=== PATIENT | male | born 1955 | race Caucasian/White ===

== ENCOUNTER 2018-07-15 22:46 | Inpatient (IN) ==
--- NOTE | 2018-07-15 23:03 | Emergency Department Note ---
Disposition Clinical Impression: Hyponatremia Altered mental status Qualifiers: Altered mental status type: delirium Qualified Code(s): R41.0 - Disorientation, unspecified Disposition: Admitted As Inpatient Condition: Critical Referrals: NONE,PCP [Primary Care Provider] - Forms: ED Satisfaction Letter Time of Disposition: 00:48 Altered Mental Status HPI - General Chief Complaint: ED Altered Mental Status Stated Complaint: Altered Time Seen by Provider: 07/15/18 22:52 Source: patient, EMS Mode of arrival: EMS Limitations: altered mental status Nursing Notes Reviewed: Yes Vital Signs Reviewed: Yes - History of Present Illness HPI Narrative: 63-year-old male who lives at [facility] arrives to the emergency department alteration in mentation. Is unsure when the patient's last known well was noted. The patient apparently had a fall one day ago in the kitchen. He did not strike his head. Unknown LOC. The patient was noted to not get his blood glucose checked a few times today which is very unlike the patient. The patient was rambling about him being in the hospital and him being at home according to the people at [facility]. He was brought in for evaluation. Patient takes no anticoagulation. He is unsure of his other medications. The patient denies any active drug or alcohol use at this time. He is alert to person. He thinks that he is still in his room upon questioning him in the emergency department. He denies any chest pain, difficulty breathing, neck pain, headache or fevers, chills, unilateral leg swelling, paresthesias. He is appropriate and follows commands appropriately. Denies any other complaints at this time. - Related Data Allergies Allergy/AdvReac Type Severity Reaction Status Date / Time No Known Allergies Allergy Verified 07/15/18 22:54 All systems ED: reviewed and negative except as stated. Constitutional: Denies: fever, chills, weakness ENT ED: Denies: dysphagia Cardiovascular: Denies: chest pain Respiratory: Denies: dyspnea Gastrointestinal: Denies: abdominal pain Genitourinary: Denies: urgency, dysuria Musculoskeletal: Denies: back pain Integumentary: Denies: rash Neurological: Reports: confusion. Denies: headache, weakness, numbness, paresthesias, abnormal gait, vertigo Past Medical History - Past Medical History Attestation: Yes The following information was validated with the patient. Source: patient, old records reviewed Medical history: Reports: arthritis, diabetes, thyroid disease Surgical history: Reports: non-contributory Psychiatric history: Reports: anxiety, bipolar, depression, panic disorder - Social History Smoking Status: Current every day smoker Smokeless Tobacco Status: No Alcohol use: Reports: none Drug use: Reports: none Physical Exam - General Limitations: altered mental status General appearance: alert, in no apparent distress - Head Head exam: atraumatic, normocephalic, normal inspection - Eye Eye exam: Present: normal appearance, PERRL, EOMI - ENT ENT exam: normal exam, normal oropharynx, mucous membranes moist - Neck Neck exam: Present: normal inspection, full ROM, trachea midline - Chest Chest inspection: Present: normal inspection, symmetric chest wall rise - Respiratory Respiratory exam: Present: normal lung sounds bilaterally - Cardiovascular Cardiovascular exam: Present: regular rate, normal rhythm, normal heart sounds - Abdominal Exam Abdominal exam: Present: soft, Non-Tender. Absent: tenderness, distention, guarding, rebound, rigidity - Extremities Exam Extremities exam: Present: normal inspection, full ROM. Absent: tenderness, pedal edema - Neurological Exam Neurological exam: Present: alert, CN II-XII intact - Expanded Neurological Exam Patient oriented to: Present: person Speech: Present: fluid speech Cranial nerves: EOM function (II, III, IV, ): Normal, facial sensation (V): Normal, facial palsy (VII): Normal Cerebellar function: finger to nose: Normal Motor strength - LUE: 5/5 Motor strength - RUE: 5/5 Motor strength - LLE: 5/5 Motor strength - RLE: 5/5 Sensory exam upper extremity: light touch: Normal Sensory exam lower extremity: light touch: Normal Coma Scale Eye Opening: Spontaneous Coma Scale Motor Response: Obeys Commands Coma Scale Verbal Response: Oriented Coma Scale Total: 15 - Skin Skin exam: Present: warm, dry, intact, normal color Course - Consultations Consultation #1: Consultation to Dr. Red in nephrology for patient's hyponatremia. She recommended at this time a urine sodium and urine osmolality which was obtained already. She recommended a random cortisol levels well. Addition the patient was recommended to have fluid restriction with every 4 hours sodium checks until greater than 120 as well as 1 g sodium tablets 3 times a day at this time. She will see the patient in consultation recommended the patient go to the ICU at this time. She did not recommend hypertonic saline given the patient's sole concern for just alteration in mentation. Time: 00:28 Vital Signs Temperature 98.3 F 07/15/18 22:56 Pulse Rate 87 07/15/18 22:56 Respiratory Rate 16 07/15/18 22:56 Blood Pressure 159/62 07/15/18 22:56 O2 Sat by Pulse Oximetry 99 07/15/18 22:56 Temperature 98.3 F 07/15/18 22:56 Pulse Rate 86 07/16/18 00:39 Respiratory Rate 19 07/16/18 00:39 Blood Pressure 143/76 07/16/18 00:39 O2 Sat by Pulse Oximetry 97 07/16/18 00:39 Oxygen Delivery Oxygen Delivery Room Air Altered Mental Status - MDM Narrative Medical decision making narrative: Patient's workup in the emergency department demonstrates hyponatremia. This may be the etiology for the patient's alteration in mentation. His mentation has improved since he been here in the emergency department given the patient's hyponatremia as well as improving mental status and sees been in the emergency department I am concerned about a possible seizure. He is exhibited no further seizure activity here in the emergency department we started administering sodium tablets to the patient immediately. The patient had seizure precautions were placed by myself. The patient will be admitted to the hospital likely the ICU secondary to recommendation from nephrology. Lab work per nephrology was obtained. We will continue to monitor the patient's mental status. CT of the patient's head and cervical spine demonstrate no acute process. Lab work is otherwise unremarkable. Patient made aware and agrees to plan. No further recommendations at this time. Accepted by Dr. Chavez. - Medical Records Medical records reviewed: Yes I reviewed the patient's medical records. - Lab Data Lab results reviewed: Yes I reviewed the patient's lab results. Result diagrams: 07/15/18 23:04 07/15/18 23:04 Lab Results 07/15/18 07/15/18 07/15/18 Range/Units 23:04 23:04 23:04 WBC 10.1 (4.3-11.1) K/mcL RBC 4.26 (4.19-5.50) M/mcL Hgb 12.8 L (12.9-16.9) g/dL Hct 36.4 L (37.5-50.1) % MCV 85.4 (83.0-100.0) fL MCH 30.0 (28.0-33.3) pg MCHC 35.2 (31.6-35.5) g/dL RDW 13.4 (11.5-14.5) % Plt Count 218 (140-400) K/mcL MPV 7.7 L (9.4-12.4) fL Immature Gran % 0.5 (0-4) % Seg Neutrophils % 69.0 % Lymphocytes % 19.5 % Monocytes % 10.5 % Eosinophils % 0.2 % Basophils % 0.3 % Neutrophils # 7.0 (1.6-8.9) K/mcL Lymphocytes # 2.0 (0.6-4.6) K/mcL Monocytes # 1.1 (0.0-1.3) K/mcL Eosinophils # 0.0 (0.0-0.6) K/mcL Basophils # 0.0 (0.0-0.2) K/mcL Sodium 116 L* (136-145) mEq/L Potassium 3.9 (3.5-5.1) mEq/L Chloride 81 L (98-107) mEq/L Carbon Dioxide 25 (23-29) mEq/L BUN 11 (8-23) mg/dL Creatinine 0.96 (0.70-1.30) mg/dL Est GFR ( Amer) > 60 (> 60) Est GFR (Non-Af Amer) > 60 (> 60) BUN/Creatinine Ratio 11 (6-26) Glucose 244 H (70-105) mg/dL Calculated Osmolality 249 L (280-300) Calcium 9.4 (8.6-10.3) mg/dL Total Bilirubin 0.5 (0.3-1.0) mg/dL Direct Bilirubin 0.1 (0.0-0.2) mg/dL Indirect Bilirubin 0.4 (0.0-1.2) mg/dL AST 34 (13-39) Units/L ALT 14 (7-52) Units/L Alkaline Phosphatase 54 (34-104) Units/L Ammonia 23 (16-53) mcmol/L Serum Total Protein 6.9 (6.4-8.9) g/dL Albumin 4.2 (3.5-5.7) g/dL Globulin 2.7 (2.4-3.5) g/dL Albumin/Globulin Ratio 1.6 (1.1-2.2) TSH 7.381 H (0.340-5.600) mcIU/mL Urine Color (Yellow) Urine Clarity (Clear) Urine pH (5.0-8.0) pH Units Ur Specific Ida (1.010-1.025) Urine Protein (Neg-Trace) mg/dL Urine Glucose (UA) (Normal) mg/dL Urine Ketones (Negative) mg/dL Urine Blood (Negative) Urine Nitrite (Negative) Urine Bilirubin (Negative) Urine Urobilinogen (Normal) mg/dL Ur Leukocyte Esterase (Negative) Urine Microscopic RBC (0-3) per hpf Urine Microscopic WBC (0-3) per hpf Ur Squamous Epith Cells (None-Few) per lpf Urine Bacteria (None-Few) per hpf Hyaline Casts (None-Few) per lpf Ur Culture Indicated? (NO) Salicylates < 2.5 L (15.0-30.0) mg/dL Urine Opiates Screen (Mtqwpe=002) ng/mL Acetaminophen < 10 L (10-20) mcg/mL Ur Barbiturates Screen (Ftmdcg=140) ng/mL Ur Phencyclidine Scrn (Cutoff=25) ng/mL Ur Amphetamines Screen (Byhbtn=5599) ng/mL U Benzodiazepines Scrn (Euzuly=013) ng/mL Urine Cocaine Screen (Cutoff= 300) ng/mL U Marijuana (THC) Screen (Cutoff = 50) ng/mL Ur Drug Screen Interp 07/16/18 07/16/18 Range/Units 00:04 00:04 WBC (4.3-11.1) K/mcL RBC (4.19-5.50) M/mcL Hgb (12.9-16.9) g/dL Hct (37.5-50.1) % MCV (83.0-100.0) fL MCH (28.0-33.3) pg MCHC (31.6-35.5) g/dL RDW (11.5-14.5) % Plt Count (140-400) K/mcL MPV (9.4-12.4) fL Immature Gran % (0-4) % Seg Neutrophils % % Lymphocytes % % Monocytes % % Eosinophils % % Basophils % % Neutrophils # (1.6-8.9) K/mcL Lymphocytes # (0.6-4.6) K/mcL Monocytes # (0.0-1.3) K/mcL Eosinophils # (0.0-0.6) K/mcL Basophils # (0.0-0.2) K/mcL Sodium (136-145) mEq/L Potassium (3.5-5.1) mEq/L Chloride (98-107) mEq/L Carbon Dioxide (23-29) mEq/L BUN (8-23) mg/dL Creatinine (0.70-1.30) mg/dL Est GFR ( Amer) (> 60) Est GFR (Non-Af Amer) (> 60) BUN/Creatinine Ratio (6-26) Glucose (70-105) mg/dL Calculated Osmolality (280-300) Calcium (8.6-10.3) mg/dL Total Bilirubin (0.3-1.0) mg/dL Direct Bilirubin (0.0-0.2) mg/dL Indirect Bilirubin (0.0-1.2) mg/dL AST (13-39) Units/L ALT (7-52) Units/L Alkaline Phosphatase (34-104) Units/L Ammonia (16-53) mcmol/L Serum Total Protein (6.4-8.9) g/dL Albumin (3.5-5.7) g/dL Globulin (2.4-3.5) g/dL Albumin/Globulin Ratio (1.1-2.2) TSH (0.340-5.600) mcIU/mL Urine Color Yellow (Yellow) Urine Clarity Clear (Clear) Urine pH 6.5 (5.0-8.0) pH Units Ur Specific Ida 1.012 (1.010-1.025) Urine Protein Trace (Neg-Trace) mg/dL Urine Glucose (UA) 250 H (Normal) mg/dL Urine Ketones Negative (Negative) mg/dL Urine Blood Trace H (Negative) Urine Nitrite Negative (Negative) Urine Bilirubin Negative (Negative) Urine Urobilinogen Normal (Normal) mg/dL Ur Leukocyte Esterase Negative (Negative) Urine Microscopic RBC 0-3 (0-3) per hpf Urine Microscopic WBC 0-3 (0-3) per hpf Ur Squamous Epith Cells Many H (None-Few) per lpf Urine Bacteria None Seen (None-Few) per hpf Hyaline Casts None Seen (None-Few) per lpf Ur Culture Indicated? NO (NO) Salicylates (15.0-30.0) mg/dL Urine Opiates Screen Negative (Vqjpyy=968) ng/mL Acetaminophen (10-20) mcg/mL Ur Barbiturates Screen Negative (Gxxblk=691) ng/mL Ur Phencyclidine Scrn Negative (Cutoff=25) ng/mL Ur Amphetamines Screen Negative (Vhqcmy=2829) ng/mL U Benzodiazepines Scrn Negative (Kpjtts=362) ng/mL Urine Cocaine Screen Negative (Cutoff= 300) ng/mL U Marijuana (THC) Screen Negative (Cutoff = 50) ng/mL Ur Drug Screen Interp See Below - Radiology Data Radiology results reviewed: Yes I reviewed the patient's radiology results. Head CT 07/15/18 22:57 IMPRESSION: No acute intracranial abnormality. Ventricular enlargement is out of portion to sulcal prominence, likely central atrophy. An element of NPH is not excluded. D/ / Jose Larson MD / Jose Larson MD Interpreting Provider: Jose Larson MD Cervical Spine CT 07/15/18 22:58 IMPRESSION: No acute abnormality of the cervical spine. D/ / Rashad Lainez MD / Rashad Lainez MD Interpreting Provider: Rashad Lainez MD - EKG Data EKG attestation: Yes I reviewed and interpreted this EKG. EKG results narrative: Heart rate 85 BPM. Normal sinus rhythm with no ST elevation or ST depression. No acute changes. TPA Checklist - LKW: 3-4.5 hrs Add. Warnings/Precautions Patient/family understanding: The patient/family members have been counseled and understood the risk, benefit, and alternatives of treatment. Attestation Statement - Attestation Attestation: Resident Attestation: I examined this patient and my medical decision making was reviewed with the Resident Physician. I agree with the documented findings, disposition and treatment plan as described except to the extent set forth below. We independently had [id number] contact with the patient. Patient to the emergency department for altered mental status. Unknown last known well. Patient with fall proximally 1 day ago. Patient was a rambling and not making much sense and was sent to the emergency department. On my evaluation the patient knows his name and that he is in the hospital but does not know the year. Patient thinks that he is here for back pain. Patient states back pain is been going on for some time. Regular rate and rhythm, clear to auscultation bilaterally, abdomen soft nontender to palpation without guarding or rebound. No significant peripheral edema. Workup for altered mental status including CT scan of the head as well as blood work ordered.
[2018-07-15 23:21] LABS: Basophils % 0.3 %; Eosinophils % 0.2 %; Hematocrit 36.4 % (37.5-50.1); Hemoglobin 12.8 g/dL (12.9-16.9); Immature Granulocytes % 0.5 % (0-4); Lymphocytes % 19.5 %; Mean Corpuscular HGB Conc 35.2 g/dL (31.6-35.5); Mean Corpuscular Volume 85.4 fL (83.0-100.0); Mean Platelet Volume 7.7 fL (9.4-12.4); Monocytes # 1.1 K/mcL (0.0-1.3); Monocytes % 10.5 %; Platelet Count 218 K/mcL (140-400); Red Blood Count 4.26 M/mcL (4.19-5.50); Red Cell Distribution Width 13.4 % (11.5-14.5)
[2018-07-16 00:16] LABS: Acetaminophen < 10 mcg/mL (10-20); Alanine Aminotransferase 14 Units/L (7-52); Albumin 4.2 g/dL (3.5-5.7); Albumin/Globulin Ratio 1.6 (1.1-2.2); Alkaline Phosphatase 54 Units/L (34-104); Aspartate Amino Transferase 34 Units/L (13-39); BUN/Creatinine Ratio 11 (6-26); Bilirubin,Direct 0.1 mg/dL (0.0-0.2); Bilirubin,Indirect 0.4 mg/dL (0.0-1.2); Bilirubin,Total 0.5 mg/dL (0.3-1.0); Blood Urea Nitrogen 11 mg/dL (8-23); Calcium 9.4 mg/dL (8.6-10.3); Carbon Dioxide 25 mEq/L (23-29); Chloride 81 mEq/L (98-107); Globulin 2.7 g/dL (2.4-3.5); Glucose 244 mg/dL (70-105); Osmolality,Calculated 249 (280-300); Potassium 3.9 mEq/L (3.5-5.1); Salicylate < 2.5 mg/dL (15.0-30.0); Sodium 116 mEq/L (136-145); Total Protein 6.9 g/dL (6.4-8.9); eGFR For Non-African Americans > 60 (> 60)
[2018-07-16 00:17] LABS: Thyroid Stimulating Hormone 7.381 mcIU/mL (0.340-5.600)
[2018-07-16 00:19] LABS: Bilirubin,Urine Negative (Negative); Blood,Urine Trace (Negative); Clarity,Urine Clear (Clear); Color,Urine Yellow (Yellow); Glucose,Urine (UA) 250 mg/dL (Normal); Ketones,Urine Negative (Negative); Leukocyte Esterase,Urine Negative (Negative); Nitrite,Urine Negative (Negative); PH,Urine 6.5 pH Units (5.0-8.0); Protein,Urine Trace mg/dL (Neg-Trace); Specific Gravity,Urine 1.012 (1.010-1.025); Urobilinogen,Urine Normal (Normal)
[2018-07-16 00:21] LABS: Bacteria,Urine None Seen per hpf (None-Few); Hyaline Casts,Urine None Seen per lpf (None-Few); RBC,Urine 0-3 per hpf (0-3); Squamous Epithelial Cell,Urine Many per lpf (None-Few); WBC,Urine 0-3 per hpf (0-3)
[2018-07-16 00:28] LABS: Amphetamine Screen,Urine Negative ng/mL (Cutoff=1000); Barbiturate Screen,Urine Negative ng/mL (Cutoff=200); Benzodiazepines Screen,Urine Negative ng/mL (Cutoff=200); Cannabinoid Screen,Urine Negative ng/mL (Cutoff = 50); Cocaine Screen,Urine Negative ng/mL (Cutoff= 300); Opiate Screen,Urine Negative ng/mL (Cutoff=300); Phencyclidine Screen,Urine Negative ng/mL (Cutoff=25)
--- NOTE | 2018-07-16 01:27 | Internal Med History&Physical ---
<Beto Castro - Last Filed: 07/16/18 05:54> Date of Encounter: 07/16/18 Time of Encounter: 01:27 Internal Medicine - H&P: HPI Chief complaint: Altered mental status Admitted From: Home History of present illness: Mr. Blackwell is a 63 year old male permanent resident at the [facility] with a past medical history of hypertension, hyperlipidemia, CAD, diabetes mellitus type 2, hypothyroidism, tobacco dependence, and psychiatric disorder with chronic Perphenazine, Depakote, and Risperdal dependence who presented secondary to altered mental status for several weeks. He reportedly fell in the kitchen one day ago but denies striking his head. Unknown last known well or whether he had LOC. He is alert to person only and history of present illness was obtained from the medical record. In the ED, labs revealed sodium level 116, chloride level 81, urine sodium 28, urine osmolality 194, serum osmolality 249, elevated TSH 7.381, normal free T4, and normal random cortisol. ED physician spoke with cyber ops planner Dr. Red, who recommended starting sodium tablets. Repeat BMP 4 hours later showed sodium level 118. Past Med Surg Social Fam HX - Past Medical History Medical history: arthritis, diabetes, thyroid disease Psychiatric history: anxiety, bipolar, depression, panic disorder - Past Surgical History Surgical History: non-contributory, other Additional surgical history: Left shoulder surgery 10-19-76 - Social History Smoking Status: Current every day smoker Smokeless Tobacco Status: No Alcohol use: none Drug use: none Current living situation: Assisted ([facility]) - Family History Father Age: 82 Living Status: Still Living Hx Family Cardiac Disorders: Yes ([place], pacemaker) Hx Family Endocrine Disorder: Yes (Diabetes mellitus) Mother Age: 81 Living Status: Still Living Internal Medicine - H&P: Meds Acetaminophen [Tylenol] 650 mg PO Q8HR 07/16/18 [History] Aspirin [Lo-Dose Aspirin EC] 81 mg PO DAILY 07/16/18 [History] DiphenhydraMINE [Benadryl] 50 mg PO HS PRN 07/16/18 [History] Divalproex (24 HR) [Depakote ER (24 HR)] 1,000 mg PO HS 07/16/18 [History] Divalproex (24 HR) [Depakote ER (24 HR)] 500 mg PO QAM 07/16/18 [History] Insulin Glargine,Hum.rec.anlog [Lantus Solostar] 60 unit SQ QAM 07/16/18 [History] Levothyroxine [Synthroid] 100 mcg PO 0630 07/16/18 [History] RX: Benztropine Mesylate 2 mg PO BID 07/16/18 [History] RX: Glimepiride [Amaryl] 2 mg PO 0800 07/16/18 [History] RX: Perphenazine 4 mg PO QPM 07/16/18 [History] RX: Perphenazine [Trilafon] 8 mg PO BID 07/16/18 [History] Simvastatin [Zocor] 20 mg PO HS 07/16/18 [History] risperiDONE [Risperdal] 3 mg PO BID 07/16/18 [History] Allergy/AdvReac Type Severity Reaction Status Date / Time No Known Allergies Allergy Verified 07/15/18 22:54 ROS unobtainable: due to mental status All Systems PM: A 10-system review of systems was performed and is negative for pertinent findings except as documented above in the HPI. - Constitutional Vitals: Temp Pulse Resp BP Pulse Ox 98.3 F 86 19 143/76 97 07/15/18 22:56 07/16/18 00:39 07/16/18 00:39 07/16/18 00:39 07/16/18 00:39 General appearance: Present: A&O X 1, pleasant, no acute distress. Absent: answers questions appropriately Exam: awake - Head Head exam: Present: atraumatic, normocephalic - Eye Eye exam: Present: PERRL, conjuntiva pink, sclera anicteric Pupils: Present: PERRL - ENT ENT exam: Present: mucous membranes moist, normal oropharynx - Neck Neck exam general surgery: Present: supple, trachea midline. Absent: lymphadenopathy - Respiratory Respiratory exam: Present: CTAB. Absent: accessory muscle use, rales, rhonchi, wheezes - Cardiovascular Cardiovascular exam: Present: RRR, +S1, +S2. Absent: diastolic murmur, gallop, rubs, systolic murmur - GI/Abdominal GI/Abdominal exam: Present: normal bowel sounds, soft, no peritoneal signs. Absent: distended, tenderness - Extremities Exam Extremities exam: Present: warm, radial pulses palpable and symmetrical. Absent: calf tenderness, cyanotic, pedal edema - Back Exam Back exam: Absent: normal inspection (Decubitus lesions on left side back) - Neurological Exam Neurological exam: Present: alert (x1), CN II-XII intact, no focal deficits, strengths equal and symetr throughout. Absent: facial droop, speech deficit - Psychiatric Psychiatric exam: Present: flat affect, normal mood - Expanded Psychiatric Exam Focused psych exam: Present: perseverating. Absent: catatonic, euphoric, flight of ideas, mute, paranoid, pressured speech, psychomotor agitation, restlessness - Skin Skin exam: Present: dry, excoriation (Multiple quarter and dime -sized flat bullae over dependent portion of left back and buttock) Internal Med - H&P Results - Labs CBC & Chem 7: 07/16/18 02:49 07/16/18 02:49 Labs: Short CBC 07/15/18 Range/Units 23:04 WBC 10.1 (4.3-11.1) K/mcL Hgb 12.8 L (12.9-16.9) g/dL Hct 36.4 L (37.5-50.1) % Plt Count 218 (140-400) K/mcL Neutrophils # 7.0 (1.6-8.9) K/mcL BMP 07/15/18 23:04 Sodium 116 L* Potassium 3.9 Chloride 81 L Carbon Dioxide 25 BUN 11 Creatinine 0.96 Glucose 244 H Calcium 9.4 Liver Function 07/15/18 Range/Units 23:04 Total Bilirubin 0.5 (0.3-1.0) mg/dL Direct Bilirubin 0.1 (0.0-0.2) mg/dL AST 34 (13-39) Units/L ALT 14 (7-52) Units/L Alkaline Phosphatase 54 (34-104) Units/L Albumin 4.2 (3.5-5.7) g/dL Urine 07/16/18 Range/Units 00:04 Urine Color Yellow (Yellow) Urine Clarity Clear (Clear) Urine pH 6.5 (5.0-8.0) pH Units Ur Specific [place] 1.012 (1.010-1.025) Urine Protein Trace (Neg-Trace) mg/dL Urine Glucose (UA) 250 H (Normal) mg/dL - Pulse Oximetry Interpretation Digit-Finger O2 Sat by Pulse Oximetry: 98 (On ambient year) - EKG Data -: EKG Interpreted by Myself EKG shows normal: sinus rhythm ( Normal sinus rhythm, Heart rate 85, no ST elevation or depression) - Impressions ITS Impressions Head CT 07/15/18 22:57 IMPRESSION: No acute intracranial abnormality. Ventricular enlargement is out of portion to sulcal prominence, likely central atrophy. An element of NPH is not excluded. D/ / Jose Larson MD / Jose Larson MD Interpreting Provider: Jose Larson MD Cervical Spine CT 07/15/18 22:58 IMPRESSION: No acute abnormality of the cervical spine. D/ / Rashad Lainez MD / Rashad Lainez MD Interpreting Provider: Rashad Lainez MD - Assessment and plan (1) Hyponatremia Current Visit: Yes Status: Acute Assessment and plan: Euvolemic hyponatremia Sodium level 116 (corrected sodium for hyperglycemia is 118), urine sodium 28, urine osmolality 194, serum osmolality 249, elevated TSH 7.381, normal free T4, and normal random cortisol. Differential includes hypothyroidism vs. SIADH from chronic Clozapine and Risperdal dependence Patient has been acting strange for several weeks according to the [facility] staff. CT head revealed ventricular enlargement is out of portion to sulcal prominence, likely central atrophy. An element of NPH is not excluded. Continue salt tablets 3 times a day Monitor BMP every 4 hours until greater than 120 Nephrology consulted. (2) Hypochloremia Current Visit: Yes Status: Acute Assessment and plan: Chloride level 81 --> 84, continue salt tablets Monitor BMP every 4 hours Nephrology following (3) Psychiatric disorder Current Visit: Yes Status: Chronic Assessment and plan: Long-term residential [facility] patient with psychiatric disorder with chronic Perphenazine, Depakote, and Risperdal dependence presented secondary to altered mental status. Patient reports history of alcohol dependence, however [facility] staff did not confirm this was true. Alcohol level pending, banana bag ordered Patient pulled out his IV, he is A&O 1, Sitter ordered to bedside (4) Hypothyroidism Current Visit: Yes Status: Acute Assessment and plan: Elevated TSH level 7.381, free T4 level within normal limits Continue home dose Synthroid 100 g by mouth daily, patient will likely need outpatient dose adjust and close follow-up Qualifiers: Hypothyroidism type: unspecified Qualified Code(s): E03.9 - Hypothyroidism, unspecified (5) Hypertension Current Visit: Yes Status: Chronic Assessment and plan: Hydralazine ordered prn Qualifiers: Hypertension type: essential hypertension Qualified Code(s): I10 - Essential (primary) hypertension (6) Hyperlipidemia Current Visit: No Status: Chronic Assessment and plan: Continue statin. Qualifiers: Hyperlipidemia type: unspecified Qualified Code(s): E78.5 - Hyperlipidemia, unspecified (7) CAD (coronary artery disease) Current Visit: Yes Status: Acute Assessment and plan: Aspirin Cardiac diet Qualifiers: Coronary Disease-Associated Artery/Lesion type: unspecified vessel or lesion type [place] vs. transplanted heart: [place] heart Associated angina: angina presence unspecified Qualified Code(s): I25.10 - Atherosclerotic heart disease of [place] coronary artery without angina pectoris (8) DM type 2 (diabetes mellitus, type 2) Current Visit: Yes Status: Acute Assessment and plan: Hemoglobin A1c level pending Continue low dose SSI and Accu-Cheks before meals at bedtime Qualifiers: Diabetes mellitus skilled nursing insulin use: with skilled nursing use Diabetes mellitus complication status: without complication Qualified Code(s): E11.9 - Type 2 diabetes mellitus without complications; Z79.4 - [facility] (current) use of insulin (9) Arthritis of spine Current Visit: Yes Status: Chronic Assessment and plan: Continue Tylenol prn. (10) Tobacco dependence Current Visit: Yes Status: Chronic Assessment and plan: Tobacco cessation discussed (11) DVT prophylaxis Current Visit: Yes Status: Acute Assessment and plan: Heparin subcutaneous - Time Spent With Patient Total time spent is greater than 50% in coordination of care (as documented) at patient's floor/unit and/or counseling patient: <Logan Hahn - Last Filed: 07/16/18 07:19> Date of Encounter: 07/16/18 Internal Medicine - H&P: HPI History of present illness: Mr. Blackwell is a 63 year old male All Systems PM: A 10-system review of systems was performed and is negative for pertinent findings except as documented above in the HPI. - Constitutional Vitals: Temp Pulse Resp BP Pulse Ox 97.6 F 80 20 142/74 94 07/16/18 04:00 07/16/18 06:00 07/16/18 06:00 07/16/18 06:00 07/16/18 06:00 Internal Med - H&P Results - Labs CBC & Chem 7: 07/16/18 02:49 07/16/18 02:49 Labs: Short CBC 07/15/18 07/16/18 Range/Units 23:04 02:49 WBC 10.1 11.1 (4.3-11.1) K/mcL Hgb 12.8 L 13.1 (12.9-16.9) g/dL Hct 36.4 L 38.1 (37.5-50.1) % Plt Count 218 225 (140-400) K/mcL Neutrophils # 7.0 (1.6-8.9) K/mcL BMP 07/15/18 07/16/18 23:04 02:49 Sodium 116 L* 118 L* Potassium 3.9 3.8 Chloride 81 L 84 L Carbon Dioxide 25 27 BUN 11 10 Creatinine 0.96 0.96 Glucose 244 H 182 H Calcium 9.4 9.6 Liver Function 07/15/18 Range/Units 23:04 Total Bilirubin 0.5 (0.3-1.0) mg/dL Direct Bilirubin 0.1 (0.0-0.2) mg/dL AST 34 (13-39) Units/L ALT 14 (7-52) Units/L Alkaline Phosphatase 54 (34-104) Units/L Albumin 4.2 (3.5-5.7) g/dL Urine 07/16/18 Range/Units 00:04 Urine Color Yellow (Yellow) Urine Clarity Clear (Clear) Urine pH 6.5 (5.0-8.0) pH Units Ur Specific [place] 1.012 (1.010-1.025) Urine Protein Trace (Neg-Trace) mg/dL Urine Glucose (UA) 250 H (Normal) mg/dL - Impressions ITS Impressions Head CT 07/15/18 22:57 IMPRESSION: No acute intracranial abnormality. Ventricular enlargement is out of portion to sulcal prominence, likely central atrophy. An element of NPH is not excluded. D/ / Jose Larson MD / Jose Larson MD Interpreting Provider: Jose Larson MD Cervical Spine CT 07/15/18 22:58 IMPRESSION: No acute abnormality of the cervical spine. D/ / Rashad Lainez MD / Rashad Lainez MD Interpreting Provider: Rashad Lainez MD - Time Spent With Patient Total time spent is greater than 50% in coordination of care (as documented) at patient's floor/unit and/or counseling patient: - Attending Attestation Family history and physical examination of the patient and discussed his management with the resident. I reviewed the resident's note and agree with assessment and plan of care.
[2018-07-16] MEDS ORDERED: Ondansetron 4 MG/2 ML VIAL IVP PRN ×2 (01:28→09:55)
[2018-07-16] MEDS ORDERED: Naloxone 0.4 MG/ML INJ IVP PRN ×2 (01:28→09:55)
[2018-07-16] MEDS ORDERED: Acetaminophen 325 MG TABLET PO PRN (01:28)
[2018-07-16 03:05] LABS: Hematocrit 38.1 % (37.5-50.1); Hemoglobin 13.1 g/dL (12.9-16.9); Mean Corpuscular HGB Conc 34.4 g/dL (31.6-35.5); Mean Corpuscular Hemoglobin 29.5 pg (28.0-33.3); Mean Corpuscular Volume 85.8 fL (83.0-100.0); Mean Platelet Volume 7.4 fL (9.4-12.4); Platelet Count 225 K/mcL (140-400); Red Blood Count 4.44 M/mcL (4.19-5.50); Red Cell Distribution Width 13.4 % (11.5-14.5)
[2018-07-16 03:25] LABS: BUN/Creatinine Ratio 10 (6-26); Blood Urea Nitrogen 10 mg/dL (8-23); Calcium 9.6 mg/dL (8.6-10.3); Carbon Dioxide 27 mEq/L (23-29); Chloride 84 mEq/L (98-107); Glucose 182 mg/dL (70-105); Magnesium 1.6 mg/dL (1.6-2.6); Osmolality,Calculated 250 (280-300); Phosphorous 3.7 mg/dL (2.7-4.5); Potassium 3.8 mEq/L (3.5-5.1); Sodium 118 mEq/L (136-145); eGFR For Non-African Americans > 60 (> 60)
[2018-07-16] MEDS ORDERED: Thiamine (B-1) 100 MG, Folic Acid 1 MG, MVI, adult with vitamin K 10 ML in 0.9 % Sodi... IVPB SCH (04:39)
[2018-07-16] MEDS ORDERED: D5% in Water 1,000 ML IVC PRN ×2 (05:00→09:55)
[2018-07-16] MEDS ORDERED: Dextrose Gel 15 GM/37.5 ML TUBE PO PRN ×4 (05:00→09:55)
[2018-07-16] MEDS ORDERED: *HR* Dextrose 50 % in Water (Syg) 50 ML SYRINGE IVP PRN ×2 (05:00→09:55)
[2018-07-16] MEDS ORDERED: hydrALAZINE 10 MG TABLET PO PRN ×2 (05:05→09:55)
[2018-07-16] MEDS ORDERED: *HR* Heparin 5,000 UNIT/ML VIAL SQ SCH (06:00)
[2018-07-16] MEDS ORDERED: Levothyroxine 25 MCG TABLET PO SCH (06:30)
[2018-07-16] MEDS ORDERED: Insulin LISPRO 300 UNITS/3 ML VIAL SQ SCH ×2 (07:30→21:00)
[2018-07-16 07:52] LABS: BUN/Creatinine Ratio 12 (6-26); Blood Urea Nitrogen 10 mg/dL (8-23); Calcium 9.4 mg/dL (8.6-10.3); Carbon Dioxide 25 mEq/L (23-29); Chloride 87 mEq/L (98-107); Glucose 154 mg/dL (70-105); Osmolality,Calculated 252 (280-300); Potassium 4.2 mEq/L (3.5-5.1); Sodium 120 mEq/L (136-145); eGFR For Non-African Americans > 60 (> 60)
[2018-07-16 08:39] LABS: Estimated Average Glucose 174 mg/dl; Hemoglobin A1C 7.7 %
[2018-07-16] MEDS ORDERED: Pantoprazole 40 MG VIAL IVP SCH (09:00)
[2018-07-16] MEDS ORDERED: Aspirin 81 MG TAB.CHEW PO SCH (09:00)
--- NOTE | 2018-07-16 11:05 | Internal Med Progress Note ---
<Lindsey Sheridan - Last Filed: 07/16/18 11:02> Hospitalist Progress Note - Encounter Date of Encounter: 07/16/18 Time of Encounter: 11:02 - Subjective Interval History: Patient still with altered mental status, but answering some questions. At times makes rambling noise and does not answer, at times answers questions appr opriately. States he is "good" today. Denies pain. - Exam Vitals: Temp Pulse Resp BP Pulse Ox 97.8 F 89 20 138/68 92 07/16/18 07:00 07/16/18 10:00 07/16/18 10:00 07/16/18 10:00 07/16/18 10:00 Exam: General: alert, NAD HEENT: normocephalic, atraumatic, PEERLA EOMI, neck supple, trachea midline, external ears normal, MMM Cardiac: RRR, no murmurs Respiratory: CTAB Abdomen: soft, nontender, BS present Extremities: posterior tibial pulses 2/4 equal, no edema Neuro: A&Ox1 (name only) Psych: normal affect Skin: decubitus lesion left back side - Assessment and Plan (1) Altered mental status Current Visit: Yes Status: Acute Assessment and Plan: most likely due to hyponatremia slow repletion with salt tabs TID CMP Q4H diet changed from cardiac (low sodium, low cholesterol) to diabetic diet Na has increased from 116->120 in 8 hours, salt tabs currently on hold pending future BMPs transfer from ICU to telemetry (2) Hyponatremia Current Visit: Yes Status: Acute Assessment and Plan: plan as above (3) Hypochloremia Current Visit: Yes Status: Acute Assessment and Plan: plan as above (4) Hypothyroidism Current Visit: No Status: Chronic Assessment and Plan: TSH elevated 7.381 home medication of 100 ug levothyroxine questionable how patient is taking medication at [facility] care facility continue 100 ug levothyroxine discharge with instructions to take QAM on an empty stomach 1 hr before taking other morning medications or eating (5) Psychiatric disorder Current Visit: Yes Status: Chronic Assessment and Plan: continue home medications if mentation does not improve with normalization of sodium, may need psychiatry consult (6) Tobacco dependence Current Visit: Yes Status: Chronic Assessment and Plan: nicotine patch (7) CAD (coronary artery disease) Current Visit: No Status: Chronic Assessment and Plan: continue home medications (8) DM type 2 (diabetes mellitus, type 2) Current Visit: Yes Status: Acute Assessment and Plan: A1C 7.7 ADA diet SSI (9) Hypertension Current Visit: No Status: Chronic Assessment and Plan: continue home medications (10) Hyperlipidemia Current Visit: No Status: Chronic Assessment and Plan: continue home meds DVT Prophylaxis: heparin SQ - Time Spent with Patient Total time spent is greater than 50% in coordination of care (as documented) at patient's floor/unit and/or counseling patient: Internal Medicine: Result - Labs CBC & Chem 7: 07/16/18 02:49 07/16/18 07:03 Labs: Short CBC 07/15/18 07/16/18 Range/Units 23:04 02:49 WBC 10.1 11.1 (4.3-11.1) K/mcL Hgb 12.8 L 13.1 (12.9-16.9) g/dL Hct 36.4 L 38.1 (37.5-50.1) % Plt Count 218 225 (140-400) K/mcL Neutrophils # 7.0 (1.6-8.9) K/mcL BMP 07/15/18 07/16/18 07/16/18 23:04 02:49 07:03 Sodium 116 L* 118 L* 120 L* Potassium 3.9 3.8 4.2 Chloride 81 L 84 L 87 L Carbon Dioxide 25 27 25 BUN 11 10 10 Creatinine 0.96 0.96 0.85 Glucose 244 H 182 H 154 H Calcium 9.4 9.6 9.4 Liver Function 07/15/18 Range/Units 23:04 Total Bilirubin 0.5 (0.3-1.0) mg/dL Direct Bilirubin 0.1 (0.0-0.2) mg/dL AST 34 (13-39) Units/L ALT 14 (7-52) Units/L Alkaline Phosphatase 54 (34-104) Units/L Albumin 4.2 (3.5-5.7) g/dL Urine 07/16/18 Range/Units 00:04 Urine Color Yellow (Yellow) Urine Clarity Clear (Clear) Urine pH 6.5 (5.0-8.0) pH Units Ur Specific [place] 1.012 (1.010-1.025) Urine Protein Trace (Neg-Trace) mg/dL Urine Glucose (UA) 250 H (Normal) mg/dL - Impressions Impressions Head CT 07/15/18 22:57 IMPRESSION: No acute intracranial abnormality. Ventricular enlargement is out of portion to sulcal prominence, likely central atrophy. An element of NPH is not excluded. D/ / Jose Larson MD / Jose Larson MD Interpreting Provider: Jose Larson MD Cervical Spine CT 07/15/18 22:58 IMPRESSION: No acute abnormality of the cervical spine. D/ / Rashad Lainez MD / Rashad Lainez MD Interpreting Provider: Rashad Lainez MD Consult Discharge Plan - Plan Referrals: NONE,PCP [Primary Care Provider] - <Theodore Roy - Last Filed: 07/16/18 18:31> Hospitalist Progress Note - Encounter Date of Encounter: 07/16/18 - Exam Vitals: Temp Pulse Resp BP Pulse Ox 98.6 F 88 18 117/72 95 07/16/18 15:55 07/16/18 16:00 07/16/18 16:00 07/16/18 16:00 07/16/18 16:00 - Time Spent with Patient Total time spent is greater than 50% in coordination of care (as documented) at patient's floor/unit and/or counseling patient: Internal Medicine: Result - Labs CBC & Chem 7: 07/16/18 02:49 07/16/18 14:46 Labs: Short CBC 07/15/18 07/16/18 Range/Units 23:04 02:49 WBC 10.1 11.1 (4.3-11.1) K/mcL Hgb 12.8 L 13.1 (12.9-16.9) g/dL Hct 36.4 L 38.1 (37.5-50.1) % Plt Count 218 225 (140-400) K/mcL Neutrophils # 7.0 (1.6-8.9) K/mcL BMP 07/15/18 07/16/18 07/16/18 23:04 02:49 07:03 Sodium 116 L* 118 L* 120 L* Potassium 3.9 3.8 4.2 Chloride 81 L 84 L 87 L Carbon Dioxide 25 27 25 BUN 11 10 10 Creatinine 0.96 0.96 0.85 Glucose 244 H 182 H 154 H Calcium 9.4 9.6 9.4 07/16/18 07/16/18 11:38 14:46 Sodium 119 L* 119 L* Potassium 4.1 4.0 Chloride 87 L 87 L Carbon Dioxide 25 26 BUN 11 12 Creatinine 0.95 1.01 Glucose 198 H 143 H Calcium 9.1 9.3 Liver Function 07/15/18 Range/Units 23:04 Total Bilirubin 0.5 (0.3-1.0) mg/dL Direct Bilirubin 0.1 (0.0-0.2) mg/dL AST 34 (13-39) Units/L ALT 14 (7-52) Units/L Alkaline Phosphatase 54 (34-104) Units/L Albumin 4.2 (3.5-5.7) g/dL Urine 07/16/18 Range/Units 00:04 Urine Color Yellow (Yellow) Urine Clarity Clear (Clear) Urine pH 6.5 (5.0-8.0) pH Units Ur Specific [place] 1.012 (1.010-1.025) Urine Protein Trace (Neg-Trace) mg/dL Urine Glucose (UA) 250 H (Normal) mg/dL - Impressions Impressions Head CT 07/15/18 22:57 IMPRESSION: No acute intracranial abnormality. Ventricular enlargement is out of portion to sulcal prominence, likely central atrophy. An element of NPH is not excluded. D/ / Jose Larson MD / Jose Larson MD Interpreting Provider: Jose Larson MD Cervical Spine CT 07/15/18 22:58 IMPRESSION: No acute abnormality of the cervical spine. D/ / Rashad Lainez MD / Rashad Lainez MD Interpreting Provider: Rashad Lainez MD - Attending Attestation I examined this patient and my medical decision-making was reviewed with the Resident Physician on 07/16/18. I agree with the documented findings, disposition and treatment plan as described except to the extent set forth below. Pt admitted earlier today for hyponatremia. He has been receiving salt tablets. Exam alert Comfortable Mucus membranes dry Heart reg Lungs clear Agree with assessment and plan as above and in H&P <Lindsey Sheridan - Last Filed: 07/16/18 11:02> (1) Altered mental status Qualifiers: Altered mental status type: delirium Qualified Code(s): R41.0 - Disorientation, unspecified (4) Hypothyroidism Qualifiers: Hypothyroidism type: unspecified Qualified Code(s): E03.9 - Hypothyroidism, unspecified (7) CAD (coronary artery disease) Qualifiers: Coronary Disease-Associated Artery/Lesion type: unspecified vessel or lesion type [place] vs. transplanted heart: [place] heart Associated angina: angina presence unspecified Qualified Code(s): I25.10 - Atherosclerotic heart disease of [place] coronary artery without angina pectoris (8) DM type 2 (diabetes mellitus, type 2) Qualifiers: Diabetes mellitus skilled nursing insulin use: with sales service professional use Diabetes mellitus complication status: without complication Qualified Code(s): E11.9 - Type 2 diabetes mellitus without complications; Z79.4 - [facility] (current) use of insulin (9) Hypertension Qualifiers: Hypertension type: essential hypertension Qualified Code(s): I10 - Essential (primary) hypertension (10) Hyperlipidemia Qualifiers: Hyperlipidemia type: unspecified Qualified Code(s): E78.5 - Hyperlipidemia, unspecified
--- NOTE | 2018-07-16 11:48 | Nephrology Consult Note ---
Date of Encounter: 07/16/18 Time of Encounter: 11:45 Assessment and Plan (1) Hyponatremia Current Visit: Yes Status: Acute Patient with hyponatremia and altered mental status. His baseline mental status is unknown. His sodium is improving on current therapy. I recommend his sodium increase by no more than 8meq/liter/day. If overcorrection occurs he may need DDAVP to slow the rate of correction or to reverse the correction. Work-up is ordered. Patient does have hyponatremia which may be contributing. Will repeat TSH and defer management to the primary team. . (2) Altered mental status Current Visit: Yes Status: Acute Baseline unknown at this time. He is calm at the time of my evaluation. Qualifiers: Altered mental status type: delirium Qualified Code(s): R41.0 - Disorientation, unspecified (3) DM type 2 (diabetes mellitus, type 2) Current Visit: Yes Status: Acute Per the primary team. 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 Blackwell is a 63 yo man with a complicated history of psychiatric disorders who presents with altered mental status and a fall and was found to have hyponatremia. He reports that he feels well, but I'm unsure about the reliability of his history given his mental condition. Past Med Surg Social Fam HX - Past Medical History Medical history: arthritis, diabetes, thyroid disease Psychiatric history: anxiety, bipolar, depression, panic disorder - Past Surgical History Surgical History: non-contributory, other Additional surgical history: Left shoulder surgery 10-19-76 - Social History Smoking Status: Current every day smoker Smokeless Tobacco Status: No Alcohol use: none Drug use: none - Family History Mother Age: 81 Living Status: Still Living Father Age: 82 Living Status: Still Living Hx Family Cardiac Disorders: Yes (NC, pacemaker) Hx Family Endocrine Disorder: Yes (Diabetes mellitus) Medications and Allergies Acetaminophen [Tylenol] 650 mg PO Q8HR 07/16/18 [History] Aspirin [Lo-Dose Aspirin EC] 81 mg PO DAILY 07/16/18 [History] Benztropine Mesylate 2 mg PO BID 07/16/18 [History] DiphenhydraMINE [Benadryl] 50 mg PO HS PRN 07/16/18 [History] Divalproex (24 HR) [Depakote ER (24 HR)] 1,000 mg PO HS 07/16/18 [History] Divalproex (24 HR) [Depakote ER (24 HR)] 500 mg PO QAM 07/16/18 [History] Glimepiride [Amaryl] 2 mg PO 0800 07/16/18 [History] Insulin Glargine,Hum.rec.anlog [Lantus Solostar] 60 unit SQ QAM 07/16/18 [History] Levothyroxine [Synthroid] 100 mcg PO 0630 07/16/18 [History] Perphenazine 4 mg PO QPM 07/16/18 [History] Perphenazine [Trilafon] 8 mg PO BID 07/16/18 [History] Simvastatin [Zocor] 20 mg PO HS 07/16/18 [History] risperiDONE [Risperdal] 3 mg PO BID 07/16/18 [History] Allergy/AdvReac Type Severity Reaction Status Date / Time No Known Allergies Allergy Verified 07/15/18 22:54 Review of Systems ROS unobtainable: due to mental status Exam - Vital Signs Vital signs: Initial Vital Signs Temp Pulse Resp BP Pulse Ox 98.3 F 87 16 159/62 99 07/15/18 22:56 07/15/18 22:56 07/15/18 22:56 07/15/18 22:56 07/15/18 22:56 Vital Signs - Last 8 Hours Temp Pulse Resp BP Pulse Ox 07/16/18 10:00 89 20 138/68 92 07/16/18 09:00 87 18 134/82 97 07/16/18 08:00 81 20 139/85 99 07/16/18 07:00 97.8 F 81 20 148/68 99 07/16/18 06:00 80 20 142/74 94 07/16/18 05:00 81 23 164/74 95 07/16/18 04:41 78 07/16/18 04:00 97.6 F 79 20 164/98 98 Intake and Output 07/15/18 07/16/18 07/16/18 23:59 07:59 15:59 Intake Total 650 / 650 Output Total 600 / 600 Balance 650 / 650 -600 / -600 Intake: Oral 650 / 650 Output: Urine 600 / 600 Other: # Voids 1 Weight 94.801 kg 90.5 kg Blood Glucose* 213 146 Patient Weight 07/16/18 23:59 Weight 90.5 kg - General Appearance General appearance: well-developed, well-nourished EENT: ATNC Neck: supple Respiratory: course breath sounds Cardiology: no edema, regular rate Gastrointestinal: no tenderness Integumentary: warm and dry Neurologic: confused Musculoskeletal: no cyanosis Psychiatric: mood/affect appropriate Results - Lab Results 07/16/18 02:49 07/16/18 07:03 Most recent lab results Calcium 9.4 mg/dL (8.6-10.3) 07/16/18 07:03 Phosphorus 3.7 mg/dL (2.7-4.5) 07/16/18 02:49 Magnesium 1.6 mg/dL (1.6-2.6) 07/16/18 02:49 Urine Sodium 20.2 mEq/L 07/16/18 01:45 Consult Discharge Plan - Plan Referrals: NONE,PCP [Primary Care Provider] -
[2018-07-16] MEDS: Acetaminophen 325 MG TABLET PO PRN (12:06)
[2018-07-16] MEDS: Nicotine 21 MG PATCH.TD24 TD SCH (12:10)
[2018-07-16] MEDS: Insulin LISPRO 300 UNITS/3 ML VIAL SQ SCH ×3 (12:11→20:40)
[2018-07-16 12:16] LABS: BUN/Creatinine Ratio 12 (6-26); Blood Urea Nitrogen 11 mg/dL (8-23); Calcium 9.1 mg/dL (8.6-10.3); Carbon Dioxide 25 mEq/L (23-29); Chloride 87 mEq/L (98-107); Glucose 198 mg/dL (70-105); Osmolality,Calculated 253 (280-300); Potassium 4.1 mEq/L (3.5-5.1); Sodium 119 mEq/L (136-145); eGFR For Non-African Americans > 60 (> 60)
[2018-07-16] MEDS: *HR* Heparin 5,000 UNIT/ML VIAL SQ SCH ×2 (15:09→20:40)
[2018-07-16 15:41] LABS: BUN/Creatinine Ratio 12 (6-26); Blood Urea Nitrogen 12 mg/dL (8-23); Calcium 9.3 mg/dL (8.6-10.3); Carbon Dioxide 26 mEq/L (23-29); Chloride 87 mEq/L (98-107); Glucose 143 mg/dL (70-105); Osmolality,Calculated 250 (280-300); Sodium 119 mEq/L (136-145); eGFR For Non-African Americans > 60 (> 60)
[2018-07-16] MEDS: Thiamine (B-1) 100 MG, Folic Acid 1 MG, MVI, adult with vitamin K 10 ML in 0.9 % Sodi... IVPB SCH (16:09)
[2018-07-16 19:25] LABS: BUN/Creatinine Ratio 14 (6-26); Blood Urea Nitrogen 14 mg/dL (8-23); Calcium 8.9 mg/dL (8.6-10.3); Carbon Dioxide 24 mEq/L (23-29); Chloride 89 mEq/L (98-107); Glucose 211 mg/dL (70-105); Osmolality,Calculated 257 (280-300); Sodium 120 mEq/L (136-145); eGFR For Non-African Americans > 60 (> 60)
[2018-07-16 23:49] LABS: BUN/Creatinine Ratio 13 (6-26); Blood Urea Nitrogen 14 mg/dL (8-23); Calcium 8.9 mg/dL (8.6-10.3); Carbon Dioxide 23 mEq/L (23-29); Chloride 91 mEq/L (98-107); Glucose 178 mg/dL (70-105); Osmolality,Calculated 259 (280-300); Potassium 3.9 mEq/L (3.5-5.1); Sodium 122 mEq/L (136-145); eGFR For Non-African Americans > 60 (> 60)
[2018-07-17 05:37] LABS: BUN/Creatinine Ratio 11 (6-26); Blood Urea Nitrogen 12 mg/dL (8-23); Calcium 9.3 mg/dL (8.6-10.3); Carbon Dioxide 26 mEq/L (23-29); Chloride 91 mEq/L (98-107); Glucose 133 mg/dL (70-105); Osmolality,Calculated 260 (280-300); Potassium 4.1 mEq/L (3.5-5.1); Sodium 124 mEq/L (136-145); eGFR For Non-African Americans > 60 (> 60)
[2018-07-17 05:53] LABS: Thyroid Stimulating Hormone 6.065 mcIU/mL (0.340-5.600)
[2018-07-17] MEDS: *HR* Heparin 5,000 UNIT/ML VIAL SQ SCH ×3 (05:56→19:49)
[2018-07-17 06:03] LABS: Triiodothyronine (T3) Total 0.65 ng/mL (0.87-1.78)
[2018-07-17] MEDS: Insulin LISPRO 300 UNITS/3 ML VIAL SQ SCH ×4 (07:26→19:52)
[2018-07-17 08:44] LABS: BUN/Creatinine Ratio 14 (6-26); Blood Urea Nitrogen 13 mg/dL (8-23); Calcium 9.2 mg/dL (8.6-10.3); Carbon Dioxide 26 mEq/L (23-29); Chloride 93 mEq/L (98-107); Glucose 132 mg/dL (70-105); Osmolality,Calculated 262 (280-300); Potassium 4.1 mEq/L (3.5-5.1); Sodium 125 mEq/L (136-145); eGFR For Non-African Americans > 60 (> 60)
[2018-07-17] MEDS: Aspirin 81 MG TAB.CHEW PO SCH (09:21)
[2018-07-17] MEDS: Pantoprazole 40 MG VIAL IVP SCH (09:21)
[2018-07-17] MEDS: Nicotine 21 MG PATCH.TD24 TD SCH (09:21)
--- NOTE | 2018-07-17 10:33 | Internal Med Progress Note ---
<Zion Watson - Last Filed: 07/17/18 15:14> Hospitalist Progress Note - Encounter Date of Encounter: 07/17/18 Time of Encounter: 10:29 - Subjective Interval History: Patient states he feels well today, just tired. I informed him that his sodium is improving, and that for the time being we would like to monitor his sodium on PO intake, and adjust treatment accordingly. He agreed with that plan of care. - Exam Vitals: Temp Pulse Resp BP Pulse Ox 98.5 F 67 18 112/58 95 07/17/18 07:00 07/17/18 08:00 07/17/18 08:00 07/17/18 08:00 07/17/18 08:00 Exam: General: alert, NAD HEENT: normocephalic, atraumatic, PEERLA EOMI, neck supple, trachea midline, external ears normal, MMM Cardiac: RRR, no murmurs Respiratory: CTAB Abdomen: soft, nontender, BS present Extremities: moves all 4 extremities, no focal deficits noted, no edema Neuro: A&Ox3 Psych: normal affect Skin: decubitus lesion left back side - Assessment and Plan (1) Hyponatremia Current Visit: Yes Status: Acute Assessment and Plan: Patient had been acting strange for several weeks according to the [facility] clinic staff. On presentation sodium level 116, urine sodium 28, urine osmolality 194, serum osmolality 249, elevated TSH 7.381, normal free T4, and normal random cortisol. Euvolemic hyponatremia, differential includes hypothyroidism vs. SIADH from chronic Clozapine and Risperdal dependence CT head revealed ventricular enlargement is out of portion to sulcal prominence, likely central atrophy. An element of NPH is not excluded. Patient was started on po sodium chloride tabs TID, Q4HR BMP, monitoring for sodium not to increase greater than 8 meq over 24 hrs Sodium today 125 this AM, 123 this afternoon, continuing salt tabs BID and s tarted 1.5L fluid restriction Patient A&OX3, will continue serial sodiums and monitoring, adjusting salt intake as necessary Nephrology following, appreciate recommendations (2) Hypertension Current Visit: No Status: Chronic Assessment and Plan: Patient with history of HTN but no home meds PRN Hydralazine ordered, BP stable (3) Hyperlipidemia Current Visit: No Status: Chronic Assessment and Plan: Continue home statin (4) CAD (coronary artery disease) Current Visit: No Status: Chronic Assessment and Plan: Continue home aspirin and cardiac diet No signs of ACS here (5) DM type 2 (diabetes mellitus, type 2) Current Visit: Yes Status: Acute Assessment and Plan: Chronic diabetic, on home insulin, A1c 7.7 ACHS accuchecks and low dose SSI (6) Hypothyroidism Current Visit: No Status: Chronic Assessment and Plan: Elevated TSH level 7.381, elevated T3, free T4 level within normal limits Continue home dose Synthroid 100 g by mouth daily, patient will likely need outpatient dose adjust and close follow-up (7) Tobacco dependence Current Visit: No Status: Chronic (8) Psychiatric disorder Current Visit: Yes Status: Chronic Assessment and Plan: Long-term residential [facility] clinic patient with psychiatric disorder Perphenazine, Depakote, and Risperdal dependence Presented secondary to altered mental status. Medications were considered as cause of Hyponatremia Less likely, home meds restarted Patient stable, A&OX3, will continue to monitor (9) Hypochloremia Current Visit: Yes Status: Acute Assessment and Plan: Chloride level 81 on presentation, 93 today Sodium chloride tablets BID Monitoring BMP every 4 hours Nephrology following (10) DVT prophylaxis Current Visit: Yes Status: Acute Assessment and Plan: subq heparin (11) Arthritis of spine Current Visit: Yes Status: Chronic Assessment and Plan: Tylenol PRN - Time Spent with Patient Total time spent is greater than 50% in coordination of care (as documented) at patient's floor/unit and/or counseling patient: Internal Medicine: Result - Labs CBC & Chem 7: 07/16/18 02:49 07/17/18 13:19 Labs: BMP 07/16/18 07/16/18 07/16/18 11:38 14:46 18:44 Sodium 119 L* 119 L* 120 L* Potassium 4.1 4.0 4.0 Chloride 87 L 87 L 89 L Carbon Dioxide 25 26 24 BUN 11 12 14 Creatinine 0.95 1.01 1.00 Glucose 198 H 143 H 211 H Calcium 9.1 9.3 8.9 07/16/18 07/17/18 07/17/18 22:50 05:08 08:12 Sodium 122 L 124 L 125 L Potassium 3.9 4.1 4.1 Chloride 91 L 91 L 93 L Carbon Dioxide 23 26 26 BUN 14 12 13 Creatinine 1.06 1.10 0.95 Glucose 178 H 133 H 132 H Calcium 8.9 9.3 9.2 - Impressions Impressions Head CT 07/17/18 00:00 IMPRESSION: No acute intracranial abnormality. Ventricular enlargement is out of proportion to sulcal prominence and ventricles have increased in size from 06/18/2013. Findings may represent central atrophy. An element of NPH is not excluded. D/ / Jose Larson MD / Jose Larson MD Interpreting Provider: Jose Larson MD Consult Discharge Plan - Plan Referrals: NONE,PCP [Primary Care Provider] - <Theodore Roy - Last Filed: 07/17/18 18:13> Hospitalist Progress Note - Encounter Date of Encounter: 07/17/18 - Exam Vitals: Temp Pulse Resp BP Pulse Ox 98.2 F 74 20 153/72 97 07/17/18 11:00 07/17/18 16:00 07/17/18 16:00 07/17/18 16:00 07/17/18 16:00 - Assessment and Plan (1) Hyponatremia Current Visit: Yes Status: Acute (2) Hypertension Current Visit: No Status: Chronic (3) Hyperlipidemia Current Visit: No Status: Chronic (4) CAD (coronary artery disease) Current Visit: No Status: Chronic (5) DM type 2 (diabetes mellitus, type 2) Current Visit: Yes Status: Acute (6) Hypothyroidism Current Visit: No Status: Chronic (7) Tobacco dependence Current Visit: No Status: Chronic (8) Psychiatric disorder Current Visit: Yes Status: Chronic (9) Hypochloremia Current Visit: Yes Status: Acute (10) DVT prophylaxis Current Visit: Yes Status: Acute (11) Arthritis of spine Current Visit: Yes Status: Chronic (12) Tobacco abuse Current Visit: Yes Status: Chronic - Time Spent with Patient Total time spent is greater than 50% in coordination of care (as documented) at patient's floor/unit and/or counseling patient: Internal Medicine: Result - Labs CBC & Chem 7: 07/16/18 02:49 07/17/18 15:26 Labs: BMP 07/16/18 07/16/1819 18:44 22:50 05:08 Sodium 120 L* 122 L 124 L Potassium 4.0 3.9 4.1 Chloride 89 L 91 L 91 L Carbon Dioxide 24 23 26 BUN 14 14 12 Creatinine 1.00 1.06 1.10 Glucose 211 H 178 H 133 H Calcium 8.9 8.9 9.3 07/17/18 07/17/18 07/17/18 08:12 13:19 15:26 Sodium 125 L 123 L 125 L Potassium 4.1 4.1 4.3 Chloride 93 L 92 L 93 L Carbon Dioxide 26 24 25 BUN 13 14 15 Creatinine 0.95 1.05 0.99 Glucose 132 H 210 H 184 H Calcium 9.2 9.2 9.3 - Impressions Impressions Head CT 07/17/18 00:00 IMPRESSION: No acute intracranial abnormality. Ventricular enlargement is out of proportion to sulcal prominence and ventricles have increased in size from 06/18/2013. Findings may represent central atrophy. An element of NPH is not excluded. D/ / Jose Larson MD / Jose Larson MD Interpreting Provider: Jose Larson MD - Attending Attestation I examined this patient and my medical decision-making was reviewed with the Resident Physician on 07/17/18. I agree with the documented findings, disposition and treatment plan as described except to the extent set forth below. Mr Blackwell is currently admitted for hyponatremia and encephalopathy. He remains moderate to high risk due to potential for worsening clinical status. Mr Blackwell is more alert and oriented today. No fever or chills. Sodium increasing. No abd pain or GI symptoms. No CP or SOB. Exam Alert Oriented at this time. Mucus membranes dry Heart reg and not tachy No wheeze abd soft I/P 1. Hyponatremia - salt tablets and fluid restrict 3. HTN 4. CAD Further diagnoses and plan as above. <WalterZion Che - Last Filed: 07/17/18 15:14> (2) Hypertension Qualifiers: Hypertension type: essential hypertension Qualified Code(s): I10 - Essential (primary) hypertension (3) Hyperlipidemia Qualifiers: Hyperlipidemia type: unspecified Qualified Code(s): E78.5 - Hyperlipidemia, unspecified (4) CAD (coronary artery disease) Qualifiers: Coronary Disease-Associated Artery/Lesion type: unspecified vessel or lesion type [place] vs. 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
[2018-07-17 13:52] LABS: BUN/Creatinine Ratio 13 (6-26); Blood Urea Nitrogen 14 mg/dL (8-23); Calcium 9.2 mg/dL (8.6-10.3); Carbon Dioxide 24 mEq/L (23-29); Chloride 92 mEq/L (98-107); Glucose 210 mg/dL (70-105); Osmolality,Calculated 263 (280-300); Potassium 4.1 mEq/L (3.5-5.1); Sodium 123 mEq/L (136-145); eGFR For Non-African Americans > 60 (> 60)
[2018-07-17 15:55] LABS: BUN/Creatinine Ratio 15 (6-26); Blood Urea Nitrogen 15 mg/dL (8-23); Calcium 9.3 mg/dL (8.6-10.3); Carbon Dioxide 25 mEq/L (23-29); Chloride 93 mEq/L (98-107); Glucose 184 mg/dL (70-105); Osmolality,Calculated 266 (280-300); Potassium 4.3 mEq/L (3.5-5.1); Sodium 125 mEq/L (136-145); eGFR For Non-African Americans > 60 (> 60)
--- NOTE | 2018-07-17 16:05 | Electrocardiograph Report ---
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
[2018-07-17] MEDS: Thiamine (B-1) 100 MG, Folic Acid 1 MG, MVI, adult with vitamin K 10 ML in 0.9 % Sodi... IVPB SCH (17:26)
[2018-07-17] MEDS ORDERED: Perphenazine 2 MG TABLET PO SCH (18:00)
[2018-07-17 19:28] LABS: BUN/Creatinine Ratio 15 (6-26); Blood Urea Nitrogen 15 mg/dL (8-23); Calcium 9.3 mg/dL (8.6-10.3); Carbon Dioxide 24 mEq/L (23-29); Chloride 93 mEq/L (98-107); Glucose 189 mg/dL (70-105); Osmolality,Calculated 268 (280-300); Potassium 4.3 mEq/L (3.5-5.1); Sodium 126 mEq/L (136-145); eGFR For Non-African Americans > 60 (> 60)
[2018-07-17] MEDS: RisperiDAL 3 MG TABLET PO SCH (19:46)
[2018-07-17] MEDS: Perphenazine 8 MG TABLET PO SCH (19:49)
[2018-07-17] MEDS ORDERED: Divalproex (24 HR) 500 MG TABLET PO SCH (21:00)
--- NOTE | 2018-07-17 21:13 | Nephrology Progress Note ---
Date of Encounter: 07/17/18 Time of Encounter: 10:05 - Assessment and Plan (1) Hyponatremia Status: Acute Patient with multifactorial hyponatremia with improvement in his sodium and mental status level. Continue current care. 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 He has no new complaint. Objective - Vital Signs Vital signs: Vital Signs Temp Pulse Resp BP Pulse Ox 07/17/18 20:19 98.3 F 07/17/18 19:20 81 16 140/59 97 07/17/18 16:00 74 20 153/72 97 07/17/18 15:46 75 07/17/18 14:00 75 18 131/67 98 07/17/18 12:00 18 153/75 95 07/17/18 11:23 78 07/17/18 11:00 98.2 F 75 20 144/65 97 07/17/18 08:00 67 18 112/58 95 07/17/18 07:38 67 07/17/18 07:00 98.5 F 07/17/18 06:23 79 16 121/64 97 07/17/18 05:02 69 14 98/56 95 07/17/18 04:00 73 12 119/56 95 07/17/18 03:40 73 14 114/66 96 07/17/18 02:00 71 14 131/66 95 07/17/18 01:00 75 14 135/66 94 07/17/18 00:00 80 12 158/68 93 07/16/18 23:40 84 12 148/73 95 07/16/18 22:00 77 12 141/75 94 07/16/18 21:30 79 14 123/74 94 07/16/18 21:29 98.7 F Intake and Output 07/17/18 07/17/18 07/17/18 07:59 15:59 23:59 Intake Total 0 / 0 550 / 550 Output Total 400 / 400 Balance 0 / 0 550 / 550 -400 / -400 Intake: Oral 0 / 0 550 / 550 Output: Urine 400 / 400 Other: Meal Breakfast Dinner Percent of Meal Consumed 100% 100% Stool Size Smear Copious Stool Consistency formed Stool Color Brown Brown # Voids 1 1 2 # Bowel Movements 1 0 Blood Glucose* 126 218 167 - General Appearance General appearance: Present: well-developed, well-nourished EENT: Present: ATNC Neck: Present: supple Cardiology: Present: regular rate - Lab 07/18/18 04:23 07/21/18 05:17 Most recent lab results Calcium 9.3 mg/dL (8.6-10.3) 07/17/18 18:59 Phosphorus 3.7 mg/dL (2.7-4.5) 07/16/18 02:49 Magnesium 1.6 mg/dL (1.6-2.6) 07/16/18 02:49 Urine Sodium 20.2 mEq/L 07/16/18 01:45 Consult Discharge Plan - Plan Instructions: Sodium Chloride (By mouth), Osteoarthritis (DC), Hypothyroidism (DC), Diabetes Mellitus Type 2 in Adults (DC), Chronic Hypertension (DC), Cigarette Smoking and Your Health, 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
[2018-07-17] MEDS: Acetaminophen 325 MG TABLET PO PRN (22:17)
[2018-07-18 00:55] LABS: BUN/Creatinine Ratio 14 (6-26); Blood Urea Nitrogen 14 mg/dL (8-23); Carbon Dioxide 25 mEq/L (23-29); Chloride 94 mEq/L (98-107); Glucose 239 mg/dL (70-105); Osmolality,Calculated 270 (280-300); Sodium 126 mEq/L (136-145); eGFR For Non-African Americans > 60 (> 60)
[2018-07-18 04:35] LABS: Basophils # 0.1 K/mcL (0.0-0.2); Basophils % 0.5 %; Eosinophils # 0.1 K/mcL (0.0-0.6); Eosinophils % 0.7 %; Hematocrit 33.8 % (37.5-50.1); Hemoglobin 11.6 g/dL (12.9-16.9); Immature Granulocytes % 0.4 % (0-4); Lymphocytes # 2.3 K/mcL (0.6-4.6); Mean Corpuscular HGB Conc 34.3 g/dL (31.6-35.5); Mean Corpuscular Hemoglobin 29.9 pg (28.0-33.3); Mean Corpuscular Volume 87.1 fL (83.0-100.0); Mean Platelet Volume 7.7 fL (9.4-12.4); Monocytes % 9.4 %; Neutrophils # 6.9 K/mcL (1.6-8.9); Platelet Count 189 K/mcL (140-400); Red Blood Count 3.88 M/mcL (4.19-5.50); Red Cell Distribution Width 14.2 % (11.5-14.5)
[2018-07-18 04:55] LABS: BUN/Creatinine Ratio 14 (6-26); Blood Urea Nitrogen 13 mg/dL (8-23); Carbon Dioxide 24 mEq/L (23-29); Chloride 95 mEq/L (98-107); Glucose 234 mg/dL (70-105); Osmolality,Calculated 274 (280-300); Potassium 4.4 mEq/L (3.5-5.1); Sodium 128 mEq/L (136-145); eGFR For Non-African Americans > 60 (> 60)
[2018-07-18] MEDS: *HR* Heparin 5,000 UNIT/ML VIAL SQ SCH ×3 (05:51→22:16)
[2018-07-18] MEDS: Acetaminophen 325 MG TABLET PO PRN ×4 (06:39→22:25)
[2018-07-18] MEDS: Aspirin 81 MG TAB.CHEW PO SCH (08:10)
[2018-07-18] MEDS: RisperiDAL 3 MG TABLET PO SCH ×2 (08:11→22:15)
[2018-07-18] MEDS: Perphenazine 8 MG TABLET PO SCH ×2 (08:11→22:57)
[2018-07-18] MEDS: Pantoprazole 40 MG VIAL IVP SCH (08:12)
[2018-07-18] MEDS: Nicotine 21 MG PATCH.TD24 TD SCH (08:12)
[2018-07-18] MEDS: Insulin LISPRO 300 UNITS/3 ML VIAL SQ SCH ×3 (08:13→16:23)
--- NOTE | 2018-07-18 08:47 | Nephrology Progress Note ---
Date of Encounter: 07/20/18 Time of Encounter: 08:47 - Assessment and Plan (1) Hyponatremia Current Visit: Yes Status: Acute Patient with multifactorial hyponatremia with improvement in his sodium and mental status level. Will sign off. Call if questions or concerns . 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 He feels better. Objective - Vital Signs Vital signs: Vital Signs Temp Pulse Resp BP Pulse Ox 07/18/18 08:41 98.6 F 07/18/18 08:00 92 20 135/75 96 07/18/18 03:00 98.5 F 92 16 148/67 98 07/17/18 23:00 98.5 F 92 16 156/79 98 07/17/18 20:19 98.3 F 07/17/18 19:20 81 16 140/59 97 07/17/18 16:00 74 20 153/72 97 07/17/18 15:46 75 07/17/18 14:00 75 18 131/67 98 07/17/18 12:00 18 153/75 95 07/17/18 11:23 78 07/17/18 11:00 98.2 F 75 20 144/65 97 Intake and Output 07/17/18 07/18/18 07/18/18 23:59 07:59 15:59 Intake Total 250 / 250 Output Total 400 / 400 1000 / 1000 Balance -400 / -400 -750 / -750 Intake: Oral 250 / 250 Output: Urine 400 / 400 1000 / 1000 Other: Meal Dinner Percent of Meal Consumed 100% Stool Size Copious Stool Consistency formed Stool Color Brown # Voids 2 # Bowel Movements 0 Weight 91.6 kg Blood Glucose* 167 188 Patient Weight 07/18/18 23:59 Weight 91.6 kg - General Appearance General appearance: Present: well-developed, well-nourished EENT: Present: ATNC Cardiology: Present: regular rate - Lab 07/18/18 04:23 07/20/18 05:54 Most recent lab results Calcium 9.0 mg/dL (8.6-10.3) 07/18/18 04:23 Phosphorus 3.7 mg/dL (2.7-4.5) 07/16/18 02:49 Magnesium 1.6 mg/dL (1.6-2.6) 07/16/18 02:49 Urine Sodium 20.2 mEq/L 07/16/18 01:45 Consult Discharge Plan - Plan Instructions: Sodium Chloride (By mouth), Osteoarthritis (DC), Hypothyroidism (DC), Diabetes Mellitus Type 2 in Adults (DC), Chronic Hypertension (DC), Cigarette Smoking and Your Health, 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
[2018-07-18] MEDS ORDERED: Divalproex (24 HR) 500 MG TABLET PO SCH (09:00)
--- NOTE | 2018-07-18 10:17 | Discharge Summary ---
<WatsonZion Yane - Last Filed: 07/18/18 11:45> - NOTES TO OUTPATIENT PROVIDER Notes to Outpatient Provider: Mr Blackwell was admitted and treated for hyponatremia, scondary to unknown etiology. Home meds were considered less likely, potomania is a possibility. He responded well to fluid restriction and PO sodium chloride. He will be discharged in stable condition with salt tabs and repeat labs. Orders not resulted at time of discharge: Pending orders 07/18/18 12:00 Sodium Q8H 07/18/18 20:00 Sodium Q8H Date of Encounter: 07/18/18 Time of Encounter: 10:14 - Discharge Diagnosis (1) Hyponatremia Priority: Primary Status: Acute Assessment and Plan: Patient had been acting strange for several weeks according to the [facility] staff. On presentation sodium level 116, urine sodium 28, urine osmolality 194, serum osmolality 249, elevated TSH 7.381, normal free T4, and normal random cortisol. Euvolemic hyponatremia, differential includes hypothyroidism vs. SIADH from chronic Clozapine and Risperdal dependence CT head revealed ventricular enlargement is out of portion to sulcal prominence, likely central atrophy. An element of NPH is not excluded. Patient was started on po sodium chloride tabs TID, Q4HR BMP, monitoring for sodium not to increase greater than 8 meq over 24 hrs Sodium today 128 this AM, continuing salt tabs BID and 1.5L fluid restriction Patient A&OX3, will continue serial sodiums and monitoring, adjusting salt intake as necessary Nephrology following, appreciate recommendations Patient stable for discharge with continued salt tabs ad repeat outpatient labs (2) Hyperlipidemia Priority: Secondary Status: Chronic Assessment and Plan: Continue home statin Qualifiers: Hyperlipidemia type: mixed hyperlipidemia Qualified Code(s): E78.2 - Mixed hyperlipidemia (3) CAD (coronary artery disease) Priority: Secondary Status: Chronic Assessment and Plan: Continue home aspirin and cardiac diet No signs of ACS here Qualifiers: Coronary Disease-Associated Artery/Lesion type: [place] artery [place] vs. 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 Medications were considered as cause of Hyponatremia Less likely, home meds restarted Patient stable, A&OX3, will continue to monitor (6) Hypertension Priority: Secondary Status: Chronic Assessment and Plan: Patient with history of HTN but no home meds PRN Hydralazine ordered, BP stable Qualifiers: Hypertension type: essential hypertension Qualified Code(s): I10 - Essential (primary) hypertension (7) Hypothyroidism Priority: Secondary Status: Chronic Assessment and Plan: Elevated TSH level 7.381, elevated T3, free T4 level within normal limits Continue home dose Synthroid 100 g by mouth daily, patient will likely need outpatient dose adjust and close follow-up Qualifiers: Hypothyroidism type: acquired Qualified Code(s): E03.9 - Hypothyroidism, unspecified (8) Tobacco dependence Priority: Secondary Status: Chronic (9) Hypochloremia Priority: Secondary Status: Acute Assessment and Plan: Chloride level 81 on presentation, 95 today Sodium chloride tablets BID Nephrology following Stable for discharge (10) DVT prophylaxis Priority: Secondary Status: Acute Assessment and Plan: subq heparin (11) Arthritis of spine Priority: Secondary Status: Chronic Assessment and Plan: Tylenol PRN Hospital course: Mr. Blackwell is a 63 year old male permanent resident at the [facility] with a past medical history of hypertension, hyperlipidemia, CAD, diabetes mellitus type 2, hypothyroidism, tobacco dependence, and psychiatric disorder with chronic Perphenazine, Depakote, and Risperdal dependence who presented secondary to altered mental status for several weeks. He reportedly fell in the kitchen one day ago but denies striking his head. CT head in ED was benign. In the ED, labs revealed sodium level 116, chloride level 81, urine sodium 28, urine osmolality 194, serum osmolality 249, elevated TSH 7.381, normal free T4, and normal random cortisol. ED physician spoke with kier boiler Dr. Red, who recommended starting sodium tablets. Repeat BMP 4 hours later showed sodium level 118. Patient was admitted and treated for hyponatremia. Patient sodium gradually improved and orientation with it. After 3 days sodium chloride, fluid restriction and normal diet his medical condition was considered stable for discharge with continued outpatient salt tabs and follow up labs. Patient is being sent to facility where they can follow his sodium closely. Etiology is unknown, meds were considered, potomania is more likely, this will need to be followed closely outpatient. Discharge discussed with: patient, product support consultant - Time Spent with Patient Total time spent providing and/or coordinating discharge services: - Discharge Medications Prescriptions: RX: Collagenase Oint [Santyl] 1 appl TP DAILY 14 Days #1 tube RX: Sodium Chloride [Sodium Chloride Tab] 1 gm PO BID 14 Days #28 tablet Home Medications: RX: Aspirin [Lo-Dose Aspirin EC] 81 mg PO DAILY 07/16/18 [History] RX: Benztropine Mesylate 2 mg PO BID 07/16/18 [History] RX: DiphenhydraMINE [Benadryl] 50 mg PO HS PRN 07/16/18 [History] RX: Divalproex (24 HR) [Depakote ER (24 HR)] 1,000 mg PO HS 07/16/18 [History] RX: Divalproex (24 HR) [Depakote ER (24 HR)] 500 mg PO QAM 07/16/18 [History] RX: Glimepiride [Amaryl] 2 mg PO 0800 07/16/18 [History] RX: Insulin Glargine,Hum.rec.anlog [Lantus Solostar] 60 unit SQ QAM 07/16/18 [History] RX: Perphenazine 4 mg PO HS 07/16/18 [History] RX: Perphenazine [Trilafon] 8 mg PO BID 07/16/18 [History] RX: Simvastatin [Zocor] 20 mg PO HS 07/16/18 [History] RX: risperiDONE [Risperdal] 3 mg PO BID 07/16/18 [History] RX: Insulin LISPRO [Humalog Kwikpen U-100] 20 unit SQ 1200,1700 07/18/18 [History] RX: RisperiDONE MICROSPHERES [Risperdal Consta] 50 mg IM Q2W 07/18/18 [History] RX: Sodium Chloride [Sodium Chloride Tab] 1 gm PO BID 14 Days #28 tablet 07/18/18 [Rx] RX: Collagenase Oint [Santyl] 1 appl TP DAILY 14 Days #1 tube 07/21/18 [Rx] Acetaminophen [Tylenol Arthritis] 650 mg PO Q8H PRN 07/25/18 [History] Levothyroxine Sodium [Levoxyl] 112 mcg PO QAM 07/25/18 [History] Allergies/Adverse Reactions: Allergy/AdvReac Type Severity Reaction Status Date / Time No Known Allergies Allergy Verified 07/15/18 22:54 Date of admission: 07/16/18 04:18 Primary care physician: PCP NONE Consults: 07/16/18 04:52 Consult to Nephrology [CONS] Routine Consulting Provider: Kidney Burgin/SUZETTE/TIMOTHY/EZEKIEL Reason for Consult: Hyponatremia Call Completed: Yes Discharging clinician: Zion Watson Anticipated date of discharge: 07/18/18 - Constitutional Vitals: Temp Pulse Resp BP Pulse Ox 98.6 F 92 20 135/75 96 07/18/18 08:41 07/18/18 08:00 07/18/18 08:00 07/18/18 08:00 07/18/18 08:00 General appearance: Present: A&O X 1, pleasant, no acute distress. Absent: answers questions appropriately Exam: General: alert, NAD HEENT: normocephalic, atraumatic, PEERLA EOMI, neck supple, trachea midline, external ears normal, MMM Cardiac: RRR, no murmurs Respiratory: CTAB Abdomen: soft, nontender, BS present Extremities: moves all 4 extremities, no focal deficits noted, no edema Neuro: A&Ox3 Psych: normal affect Skin: decubitus lesion left back side - Patient Status Disposition: Transfer Other Condition: Good Functional capacity at discharge: independent ambulation Overall status at discharge: patient is progressing back to baseline - Discharge Instructions Instructions: Sodium Chloride (By mouth), Osteoarthritis (DC), Hypothyroidism (DC), Diabetes Mellitus Type 2 in Adults (DC), Chronic Hypertension (DC), Cigarette Smoking and Your Health, 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 Blackwell is a 63 year old male - Time Spent with Patient Total time spent providing and/or coordinating discharge services: Date of admission: 07/16/18 04:18 Primary care physician: PCP NONE Consults: 07/16/18 04:52 Consult to Nephrology [CONS] Routine Consulting Provider: Kidney Deborah/SUZETTE/TIMOTHY/EZEKIEL Reason for Consult: Hyponatremia Call Completed: Yes 07/18/18 14:21 PT [Consult to Physical Therapy] [CONS] Routine Comment: Evaluate, develop and implement POC Reason for Consult: Weakness, discharge planning. Does patient have active BEDREST order?: No Is patient medically & hemodynamically stable?: Yes Patient assessed for mobility or mobilized this visit?: Yes 07/18/18 14:22 OT [Consult to Occupational Therapy] [CONS] Routine Comment: Evaluate, develop and implement POC Reason for Consult: Weakness Does patient have active BEDREST order?: No Is patient medically & hemodynamically stable?: Yes Patient assessed for mobility or mobilized this visit?: Yes - Constitutional Vitals: Temp Pulse Resp BP Pulse Ox 97.9 F 85 15 136/59 93 07/21/18 15:10 07/21/18 15:10 07/21/18 15:10 07/21/18 15:10 07/21/18 15:10 - Attending Attestation Pt not discharged on this date. See progress note of this date.
--- NOTE | 2018-07-18 10:54 | Physician Discharge Referral ---
ExtendedCare Referral Info Transfer To: [facility] Provider in Charge: Kirill Provider in Charge after Transfer: PCP Institutional Level of Care: Intermediate - Diagnosis (1) Hyponatremia Priority: Primary Status: Acute (2) Hypertension Priority: Secondary Status: Chronic (3) Hyperlipidemia Priority: Secondary Status: Chronic (4) CAD (coronary artery disease) Priority: Secondary Status: Chronic (5) DM type 2 (diabetes mellitus, type 2) Priority: Secondary Status: Chronic (6) Hypothyroidism Priority: Secondary Status: Chronic (7) Tobacco dependence Priority: Secondary Status: Chronic (8) Psychiatric disorder Priority: Secondary Status: Chronic (9) Hypochloremia Priority: Secondary Status: Acute (10) DVT prophylaxis Priority: Secondary Status: Acute (11) Arthritis of spine Priority: Secondary Status: Chronic Expected Duration of Placement: indefinite Prognosis: Good Aware of Diagnosis: Patient Aware of Prognosis: Patient - Transfer Medications Prescriptions: Sodium Chloride [Sodium Chloride Tab] 1 gm PO BID 14 Days #28 tablet Home Medications: Acetaminophen [Tylenol] 650 mg PO Q8HR 07/16/18 [History] Aspirin [Lo-Dose Aspirin EC] 81 mg PO DAILY 07/16/18 [History] Benztropine Mesylate 2 mg PO BID 07/16/18 [History] DiphenhydraMINE [Benadryl] 50 mg PO HS PRN 07/16/18 [History] Divalproex (24 HR) [Depakote ER (24 HR)] 1,000 mg PO HS 07/16/18 [History] Divalproex (24 HR) [Depakote ER (24 HR)] 500 mg PO QAM 07/16/18 [History] Glimepiride [Amaryl] 2 mg PO 0800 07/16/18 [History] Insulin Glargine,Hum.rec.anlog [Lantus Solostar] 60 unit SQ QAM 07/16/18 [History] Levothyroxine [Synthroid] 100 mcg PO 0630 07/16/18 [History] Perphenazine 4 mg PO QPM 07/16/18 [History] Perphenazine [Trilafon] 8 mg PO BID 07/16/18 [History] Simvastatin [Zocor] 20 mg PO HS 07/16/18 [History] risperiDONE [Risperdal] 3 mg PO BID 07/16/18 [History] Sodium Chloride [Sodium Chloride Tab] 1 gm PO BID 14 Days #28 tablet 07/18/18 [Rx] Allergies/Adverse Reactions: Allergy/AdvReac Type Severity Reaction Status Date / Time No Known Allergies Allergy Verified 07/15/18 22:54 - Respiratory Orders Smoking Cessation: Smoking cessation has been advised. For more information, call the [place] Tobacco Quit Line at 4-792-CIFA-NOW. - Lab Orders Lab Orders: Other (include drug levels w/frequency) (BMP Q3Days x 3 to assess hyponatremia) - Advance Directives Code Status: Full Code CERTIFICATION: I certify that the transfer of the above named patient to an Extended Care Facility is necessary for the continuing treatment of the diagnosis listed. The above information is true and accurate reflection of patient's current condition. Confidential - Redisclosure prohibited without a patient's written consent.
[2018-07-18] MEDS ORDERED: *HR* Dextrose 50 % in Water (Syg) 50 ML SYRINGE IVP PRN (17:33)
[2018-07-18] MEDS ORDERED: D5% in Water 1,000 ML IVC PRN (17:33)
[2018-07-18] MEDS ORDERED: hydrALAZINE 10 MG TABLET PO PRN (17:33)
[2018-07-18] MEDS ORDERED: Dextrose Gel 15 GM/37.5 ML TUBE PO PRN ×2 (17:33)
[2018-07-18] MEDS ORDERED: Naloxone 0.4 MG/ML INJ IVP PRN (17:33)
[2018-07-18] MEDS ORDERED: Ondansetron 4 MG/2 ML VIAL IVP PRN (17:33)
--- NOTE | 2018-07-18 18:38 | Internal Med Progress Note ---
Hospitalist Progress Note - Encounter Date of Encounter: 07/18/18 Time of Encounter: 09:30 - Subjective Interval History: Mr Blackwell is currently admitted for acute hyponatremia. He remains moderate to high risk due to potential for worsening clinical status. Mr Blackwell feels OK today. His sodium is slowly increasing. He denies pain or dyspnea. No GI issues. - Exam Vitals: Temp Pulse Resp BP Pulse Ox 98.0 F 86 19 162/81 97 07/18/18 16:00 07/18/18 17:39 07/18/18 16:00 07/18/18 17:39 07/18/18 17:39 Exam: General: Alert and oriented. Comfortable at this time. Skin: Normal color, no rash, no lesions. H: Normocephalic. EENT: EOMI, pupils equal. Mucus membranes moist. Cardiovascular: Normal S1 & S2, no murmurs or gallops. Not tachycardic Lungs: Normal breath sounds, no wheezes or crackles. Abdomen: Soft, non-tender, no rigidity. Normal bowel sounds. Extremities: No deformity, no edema or tenderness, no joint swelling or clubbing. Neurological: Normal cognition and motor skills. Pulses: Carotid and radial pulses normal +2. Rest of the physical exam is non contributory - Assessment and Plan (1) Hyponatremia Current Visit: Yes Status: Acute Assessment and Plan: Patient had been acting strange for several weeks according to the [facility] staff. On presentation sodium level 116, urine sodium 28, urine osmolality 194, serum osmolality 249, elevated TSH 7.381, normal free T4, and normal random cortisol. Euvolemic hyponatremia, differential includes hypothyroidism vs. SIADH from chronic Clozapine and Risperdal dependence CT head revealed ventricular enlargement is out of portion to sulcal prominence, likely central atrophy. An element of NPH is not excluded. Patient was started on po sodium chloride tabs TID, Q4HR BMP, monitoring for sodium not to increase greater than 8 meq over 24 hrs Sodium today 128 this AM, continuing salt tabs BID and 1.5L fluid restriction Patient A&OX3, will continue serial sodiums and monitoring, adjusting salt intake as necessary Nephrology following, appreciate recommendations Patient stable for discharge with continued salt tabs ad repeat outpatient labs It appears that he will be unable to return to his place of living and we will need to make further arrangements. PT/OT have been consulted. (2) Hypertension Current Visit: No Status: Chronic Assessment and Plan: Controlled at this time. (3) Hyperlipidemia Current Visit: No Status: Chronic Assessment and Plan: Chronic issue (4) CAD (coronary artery disease) Current Visit: No Status: Chronic Assessment and Plan: Continue home aspirin and cardiac diet No signs of ACS here (5) DM type 2 (diabetes mellitus, type 2) Current Visit: Yes Status: Chronic Assessment and Plan: Chronic diabetic, on home insulin, A1c 7.7 ACHS accuchecks and low dose SSI No change for now (6) Hypothyroidism Current Visit: No Status: Chronic Assessment and Plan: Elevated TSH level 7.381, elevated T3, free T4 level within normal limits Synthroid dose recently increased to 112mcg. Follow as outpatient. (7) Psychiatric disorder Current Visit: Yes Status: Chronic Assessment and Plan: Long-term residential [facility] patient with psychiatric disorder Perphenazine, Depakote, and Risperdal dependence Presented secondary to altered mental status. Medications were considered as cause of Hyponatremia Less likely, home meds restarted Patient stable, A&OX3, will continue to monitor No acute issues. Meds restarted. (8) DVT prophylaxis Current Visit: Yes Status: Acute Assessment and Plan: subq heparin (9) Arthritis of spine Current Visit: Yes Status: Chronic Assessment and Plan: Tylenol PRN (10) Tobacco abuse Current Visit: Yes Status: Chronic Assessment and Plan: Cessation counselling. - Time Spent with Patient Total time spent is greater than 50% in coordination of care (as documented) at patient's floor/unit and/or counseling patient: Internal Medicine: Result - Labs CBC & Chem 7: 07/18/18 04:23 07/18/18 11:54 Labs: Short CBC 07/18/18 Range/Units 04:23 WBC 10.3 (4.3-11.1) K/mcL Hgb 11.6 L D (12.9-16.9) g/dL Hct 33.8 L (37.5-50.1) % Plt Count 189 (140-400) K/mcL Neutrophils # 6.9 (1.6-8.9) K/mcL BMP 07/17/18 07/17/18 07/18/18 18:59 23:48 04:23 Sodium 126 L 126 L 128 L Potassium 4.3 4.0 4.4 Chloride 93 L 94 L 95 L Carbon Dioxide 24 25 24 BUN 15 14 13 Creatinine 1.03 0.97 0.94 Glucose 189 H 239 H 234 H Calcium 9.3 9.0 9.0 07/18/18 11:54 Sodium 129 L Potassium Chloride Carbon Dioxide BUN Creatinine Glucose Calcium Consult Discharge Plan - Plan Referrals: NONE,PCP [Primary Care Provider] - Prescriptions: Sodium Chloride [Sodium Chloride Tab] 1 gm PO BID 14 Days #28 tablet (2) Hypertension Qualifiers: Hypertension type: essential hypertension Qualified Code(s): I10 - Essential (primary) hypertension (3) Hyperlipidemia Qualifiers: Hyperlipidemia type: mixed hyperlipidemia Qualified Code(s): E78.2 - Mixed hyperlipidemia (4) CAD (coronary artery disease) Qualifiers: Coronary Disease-Associated Artery/Lesion type: [place] artery [place] vs. transplanted heart: [place] heart Associated angina: without angina Qualified Code(s): I25.10 - Atherosclerotic heart disease of [place] coronary artery without angina pectoris (5) DM type 2 (diabetes mellitus, type 2) Qualifiers: Diabetes mellitus longterm insulin use: with longterm use Diabetes mellitus complication status: without complication Qualified Code(s): E11.9 - Type 2 diabetes mellitus without complications; Z79.4 - senior living (current) use of insulin (6) Hypothyroidism Qualifiers: Hypothyroidism type: acquired Qualified Code(s): E03.9 - Hypothyroidism, unspecified
[2018-07-18] MEDS: Perphenazine 2 MG TABLET PO SCH (20:18)
[2018-07-18] MEDS ORDERED: Insulin LISPRO 300 UNITS/3 ML VIAL SQ SCH (21:00)
[2018-07-18] MEDS: Divalproex (24 HR) 500 MG TABLET PO SCH (22:14)
[2018-07-19] MEDS: *HR* Heparin 5,000 UNIT/ML VIAL SQ SCH ×3 (06:00→21:40)
[2018-07-19] MEDS ORDERED: Pantoprazole 40 MG VIAL IVP SCH (09:00)
[2018-07-19] MEDS: Insulin LISPRO 300 UNITS/3 ML VIAL SQ SCH ×4 (09:31→21:41)
[2018-07-19] MEDS: Nicotine 21 MG PATCH.TD24 TD SCH (09:38)
[2018-07-19] MEDS: Acetaminophen 325 MG TABLET PO PRN ×2 (09:38→21:40)
[2018-07-19] MEDS: Divalproex (24 HR) 500 MG TABLET PO SCH ×2 (09:39→21:40)
[2018-07-19] MEDS: Perphenazine 8 MG TABLET PO SCH ×2 (09:39→21:40)
[2018-07-19] MEDS: RisperiDAL 3 MG TABLET PO SCH ×2 (09:40→21:39)
[2018-07-19] MEDS: Aspirin 81 MG TAB.CHEW PO SCH (09:40)
[2018-07-19] MEDS: Insulin DETEMIR 100 UNIT/ML X5UNITS SQ SCH (09:49)
[2018-07-19] MEDS: Perphenazine 2 MG TABLET PO SCH (16:48)
--- NOTE | 2018-07-19 17:22 | Internal Med Progress Note ---
<Zion Watson - Last Filed: 07/19/18 17:19> Hospitalist Progress Note - Encounter Date of Encounter: 07/19/18 Time of Encounter: 09:00 - Subjective Interval History: Patient has no complaints today. No events reported by nursing. Patient states hes ready to go. I spoke with Villa with social work who reached out to [facility], who is supposed to come do a site visit at some point. Patient stated if he cant go back there he doesnt want to fo to a nursing facility. Villa informed me he would look into other placement options. - Exam Vitals: Temp Pulse Resp BP Pulse Ox 97.3 F L 80 18 172/81 97 07/19/18 16:27 07/19/18 16:27 07/19/18 16:27 07/19/18 16:27 07/19/18 16:27 Exam: General: Alert and oriented. Comfortable at this time. Skin: Normal color, no rash, no lesions. H: Normocephalic. EENT: EOMI, pupils equal. Mucus membranes moist. Cardiovascular: Normal S1 & S2, no murmurs or gallops. Not tachycardic Lungs: Breath sounds diffusely rhoncorous, cleared with cough, no wheeze or rales Abdomen: Soft, non-tender, no rigidity. Normal bowel sounds. Extremities: No deformity, no edema or tenderness, no joint swelling or clubbing. Neurological: Normal cognition, moves all extremities, no focal deficits noted Pulses: Carotid and radial pulses normal +2. Rest of the physical exam is non contributory - Assessment and Plan (1) Hyponatremia Current Visit: Yes Status: Acute Assessment and Plan: Patient presented with hyponatremia, improved, clinically stable, sodium stable on salt tabs and fluid restriction Waiting for placement, continuing sodium replacement and monitoring (2) Hyperlipidemia Current Visit: No Status: Chronic Assessment and Plan: Chronic issue, continuing home simvastatin (3) CAD (coronary artery disease) Current Visit: No Status: Chronic Assessment and Plan: Continue home aspirin No signs of ACS here (4) DM type 2 (diabetes mellitus, type 2) Current Visit: Yes Status: Chronic Assessment and Plan: Chronic diabetic, on home insulin, A1c 7.7 ACHS accuchecks and medium dose SSI (5) Psychiatric disorder Current Visit: Yes Status: Chronic Assessment and Plan: Long-term residential [facility] patient with psychiatric disorder Perphenazine, Depakote, and Risperdal dependence Presented secondary to altered mental status. Medications were considered as cause of Hyponatremia Less likely, home meds restarted Patient stable, A&OX3, will continue to monitor (6) DVT prophylaxis Current Visit: Yes Status: Acute Assessment and Plan: subq heparin - Time Spent with Patient Total time spent is greater than 50% in coordination of care (as documented) at patient's floor/unit and/or counseling patient: Internal Medicine: Result - Labs CBC & Chem 7: 07/18/18 04:23 07/19/18 10:21 Labs: BMP 07/18/18 07/19/18 19:51 10:21 Sodium 130 L 127 L Consult Discharge Plan - Plan Referrals: NONE,PCP [Primary Care Provider] - Prescriptions: RX: Sodium Chloride [Sodium Chloride Tab] 1 gm PO BID 14 Days #28 tablet <Imtiaz Cortes - Last Filed: 07/20/18 08:16> Hospitalist Progress Note - Encounter Date of Encounter: 07/20/18 - Exam Vitals: Temp Pulse Resp BP Pulse Ox 99.1 F 86 15 149/79 95 07/20/18 04:21 07/20/18 04:21 07/20/18 04:21 07/20/18 04:21 07/20/18 04:21 - Assessment and Plan (1) Hyponatremia Current Visit: Yes Status: Acute (2) Hyperlipidemia Current Visit: No Status: Chronic (3) CAD (coronary artery disease) Current Visit: No Status: Chronic (4) DM type 2 (diabetes mellitus, type 2) Current Visit: Yes Status: Chronic (5) Psychiatric disorder Current Visit: Yes Status: Chronic (6) DVT prophylaxis Current Visit: Yes Status: Acute - Time Spent with Patient Total time spent is greater than 50% in coordination of care (as documented) at patient's floor/unit and/or counseling patient: Internal Medicine: Result - Labs CBC & Chem 7: 07/18/18 04:23 07/20/18 05:54 Labs: BMP 07/19/18 07/20/18 10:21 05:54 Sodium 127 L 127 L - Attending Attestation I examined this patient and my medical decision-making was reviewed with the Resident Physician. I agree with the documented findings, disposition and treatment plan as described except to the extent set forth below. <Zion Watson - Last Filed: 07/19/18 17:19> (2) Hyperlipidemia Qualifiers: Hyperlipidemia type: mixed hyperlipidemia Qualified Code(s): E78.2 - Mixed hyperlipidemia (3) CAD (coronary artery disease) Qualifiers: Coronary Disease-Associated Artery/Lesion type: [place] artery [place] vs. 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 transplanted heart: [place] heart Associated angina: without angina Qualified Code(s): I25.10 - Atherosclerotic heart disease of [place] coronary artery without angina pectoris (4) DM type 2 (diabetes mellitus, type 2) Qualifiers: Diabetes mellitus intermediate insulin use: with intermediate use Diabetes mellitus complication status: without complication Qualified Code(s): E11.9 - Type 2 diabetes mellitus without complications; Z79.4 - half-way (current) use of insulin
[2018-07-20] MEDS: Acetaminophen 325 MG TABLET PO PRN ×3 (04:36→22:06)
[2018-07-20] MEDS: *HR* Heparin 5,000 UNIT/ML VIAL SQ SCH ×3 (06:08→22:12)
[2018-07-20] MEDS: Nicotine 21 MG PATCH.TD24 TD SCH (07:54)
[2018-07-20] MEDS: Aspirin 81 MG TAB.CHEW PO SCH (07:55)
[2018-07-20] MEDS: Divalproex (24 HR) 500 MG TABLET PO SCH ×2 (07:55→22:09)
[2018-07-20] MEDS: RisperiDAL 3 MG TABLET PO SCH ×2 (07:56→22:06)
[2018-07-20] MEDS: Perphenazine 8 MG TABLET PO SCH ×2 (07:56→22:12)
[2018-07-20] MEDS: Insulin LISPRO 300 UNITS/3 ML VIAL SQ SCH ×4 (07:56→22:18)
[2018-07-20] MEDS: Insulin DETEMIR 100 UNIT/ML X5UNITS SQ SCH (08:00)
--- NOTE | 2018-07-20 14:35 | Internal Med Progress Note ---
<Zion Watson - Last Filed: 07/20/18 15:51> Hospitalist Progress Note - Encounter Date of Encounter: 07/20/18 Time of Encounter: 08:00 - Subjective Interval History: Discussed with patient and community mental health social worker that patient will go back to [facility] tomorrow. Patient has no acute complaints and nursing reported no events. - Exam Vitals: Temp Pulse Resp BP Pulse Ox 98.0 F 90 16 168/80 98 07/20/18 08:31 07/20/18 12:38 07/20/18 12:38 07/20/18 12:38 07/20/18 12:38 Exam: General: Alert and oriented. Comfortable at this time. Skin: Normal color, no rash, no lesions. H: Normocephalic. EENT: EOMI, pupils equal. Mucus membranes moist. Cardiovascular: Normal S1 & S2, no murmurs or gallops. Not tachycardic Lungs: Breath sounds diminished, but clear without wheeze/rales/rhonchi Abdomen: Soft, non-tender, no rigidity. Normal bowel sounds. Extremities: No deformity, no edema or tenderness, no joint swelling or clubbing. Neurological: Normal cognition, moves all extremities, no focal deficits noted Rest of the physical exam is non contributory - Assessment and Plan (1) Hyponatremia Current Visit: Yes Status: Acute Assessment and Plan: Patient presented with hyponatremia, improved, clinically stable, no neurological signs, sodium stable on salt tabs and fluid restriction Waiting for placement, continuing sodium replacement and monitoring (2) Hyperlipidemia Current Visit: No Status: Chronic Assessment and Plan: Chronic issue, continuing home simvastatin (3) CAD (coronary artery disease) Current Visit: No Status: Chronic Assessment and Plan: Continue home aspirin No signs of ACS here (4) DM type 2 (diabetes mellitus, type 2) Current Visit: Yes Status: Chronic Assessment and Plan: Chronic diabetic, on home insulin, A1c 7.7 ACHS accuchecks and medium dose SSI, glucose stable (5) Psychiatric disorder Current Visit: Yes Status: Chronic Assessment and Plan: Long-term residential [facility] patient with psychiatric disorder Perphenazine, Depakote, and Risperdal dependence Presented secondary to altered mental status. Medications were considered as cause of Hyponatremia Less likely, home meds restarted Patient stable, A&OX3, will continue to monitor (6) DVT prophylaxis Current Visit: Yes Status: Acute Assessment and Plan: subq heparin - Time Spent with Patient Total time spent is greater than 50% in coordination of care (as documented) at patient's floor/unit and/or counseling patient: Internal Medicine: Result - Labs CBC & Chem 7: 07/18/18 04:23 07/20/18 05:54 Labs: BMP 07/20/18 05:54 Sodium 127 L Consult Discharge Plan - Plan Instructions: Sodium Chloride (By mouth), Osteoarthritis (DC), Hypothyroidism (DC), Diabetes Mellitus Type 2 in Adults (DC), Chronic Hypertension (DC), Cigarette Smoking and Your Health, Noc Engineer (GEN) Referrals: NONE,PCP [Primary Care Provider] - Prescriptions: RX: Sodium Chloride [Sodium Chloride Tab] 1 gm PO BID 14 Days #28 tablet <Imtiaz Cortes Diogenes - Last Filed: 07/20/18 16:25> Hospitalist Progress Note - Encounter Date of Encounter: 07/20/18 - Exam Vitals: Temp Pulse Resp BP Pulse Ox 98.0 F 90 16 168/80 98 07/20/18 08:31 07/20/18 12:38 07/20/18 12:38 07/20/18 12:38 07/20/18 12:38 - Assessment and Plan (1) Hyponatremia Current Visit: Yes Status: Acute (2) Hyperlipidemia Current Visit: No Status: Chronic (3) CAD (coronary artery disease) Current Visit: No Status: Chronic (4) DM type 2 (diabetes mellitus, type 2) Current Visit: Yes Status: Chronic (5) Psychiatric disorder Current Visit: Yes Status: Chronic (6) DVT prophylaxis Current Visit: Yes Status: Acute - Time Spent with Patient Total time spent is greater than 50% in coordination of care (as documented) at patient's floor/unit and/or counseling patient: Internal Medicine: Result - Labs CBC & Chem 7: 07/18/18 04:23 07/20/18 05:54 Labs: BMP 07/20/18 05:54 Sodium 127 L - Attending Attestation I examined this patient and my medical decision-making was reviewed with the Resident Physician. I agree with the documented findings, disposition and treatment plan as described except to the extent set forth below. <Zion Watson - Last Filed: 07/20/18 15:51> (2) Hyperlipidemia Qualifiers: Hyperlipidemia type: mixed hyperlipidemia Qualified Code(s): E78.2 - Mixed hyperlipidemia (3) CAD (coronary artery disease) Qualifiers: Coronary Disease-Associated Artery/Lesion type: [place] artery [place] vs. transplanted heart: [place] heart Associated angina: without angina Qualified Code(s): I25.10 - Atherosclerotic heart disease of [place] coronary artery without angina pectoris (4) DM type 2 (diabetes mellitus, type 2) Qualifiers: Diabetes mellitus chart computer insulin use: with chart computer use Diabetes mellitus complication status: without complication Qualified Code(s): E11.9 - Type 2 diabetes mellitus without complications; Z79.4 - penitentiary (current) use of insulin <Imtiaz Cortes - Last Filed: 07/20/18 16:25> (2) Hyperlipidemia Qualifiers: Hyperlipidemia type: mixed hyperlipidemia Qualified Code(s): E78.2 - Mixed hyperlipidemia (3) CAD (coronary artery disease) Qualifiers: Coronary Disease-Associated Artery/Lesion type: [place] artery [place] vs. 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
[2018-07-20] MEDS: Perphenazine 2 MG TABLET PO SCH (16:58)
[2018-07-21] MEDS: *HR* Heparin 5,000 UNIT/ML VIAL SQ SCH ×2 (06:31→16:28)
[2018-07-21] MEDS: Insulin LISPRO 300 UNITS/3 ML VIAL SQ SCH ×2 (09:17→11:41)
[2018-07-21] MEDS: Divalproex (24 HR) 500 MG TABLET PO SCH (09:17)
[2018-07-21] MEDS: Perphenazine 8 MG TABLET PO SCH (09:19)
[2018-07-21] MEDS: RisperiDAL 3 MG TABLET PO SCH (09:19)
[2018-07-21] MEDS: Aspirin 81 MG TAB.CHEW PO SCH (09:19)
[2018-07-21] MEDS: Nicotine 21 MG PATCH.TD24 TD SCH (09:20)
[2018-07-21] MEDS: Acetaminophen 325 MG TABLET PO PRN (09:24)
[2018-07-21] MEDS: Insulin DETEMIR 100 UNIT/ML X5UNITS SQ SCH (09:25)
--- NOTE | 2018-07-21 10:54 | Discharge Summary ---
<Zion Watson - Last Filed: 07/21/18 11:49> - NOTES TO OUTPATIENT PROVIDER Notes to Outpatient Provider: Mr Blackwell was admitted fo altered mental status and was found to be severely Hyponatremic. Work up indicated most likely secondary to polydipsia, psych meds considered less likely. Patient was started on salt tabs and fluid restriction with close neuro monitoring, with good improvement of sodium and no neuro complications. Patient stable to return to [facility] with PO sodium chloride and fluid restriction. Date of Encounter: 07/21/18 Time of Encounter: 10:47 - Discharge Diagnosis (1) Hyponatremia Priority: Primary Status: Acute Assessment and Plan: Patient presented with hyponatremia, improved, clinically stable, no neurologica l signs, sodium stable on salt tabs and fluid restriction Discharge in stable condition with home meds and salt tabs (2) Hyperlipidemia Priority: Secondary Status: Chronic Assessment and Plan: Chronic issue, continuing home simvastatin at discharge Qualifiers: Hyperlipidemia type: mixed hyperlipidemia Qualified Code(s): E78.2 - Mixed hyperlipidemia (3) CAD (coronary artery disease) Priority: Secondary Status: Chronic Assessment and Plan: Continue home aspirin No signs of ACS here Qualifiers: Coronary Disease-Associated Artery/Lesion type: [place] artery [place] vs. transplanted heart: [place] heart Associated angina: without angina Qualified Code(s): I25.10 - Atherosclerotic heart disease of [place] coronary artery without angina pectoris (4) DM type 2 (diabetes mellitus, type 2) Priority: Secondary Status: Chronic Assessment and Plan: Chronic diabetic, on home insulin, A1c 7.7 ACHS accuchecks and medium dose SSI, glucose stable Discharge on home antihyperglycemics Qualifiers: Diabetes mellitus half-way insulin use: with half-way use Diabetes mellitus complication status: without complication Qualified Code(s): E11.9 - Type 2 diabetes mellitus without complications; Z79.4 - terminal manager (current) use of insulin (5) Psychiatric disorder Priority: Secondary Status: Chronic Assessment and Plan: Long-term residential [facility] clinic patient with psychiatric disorder Perphenazine, Depakote, and Risperdal dependence Presented secondary to altered mental status. Medications were considered as cause of Hyponatremia Less likely, home meds restarted Patient stable, A&OX3, will discharge on home meds (6) DVT prophylaxis Priority: Secondary Status: Acute Assessment and Plan: subq heparin Hospital course: Mr. Blackwell is a 63 year old male permanent resident at the [facility] with a past medical history of hypertension, hyperlipidemia, CAD, diabetes mellitus type 2, hypothyroidism, tobacco dependence, and psychiatric disorder with chronic Perphenazine, Depakote, and Risperdal dependence who presented secondary to altered mental status for several weeks. He reportedly fell in the kitchen but denies striking his head. CT head in ED was benign. In the ED, labs revealed sodium level 116, chloride level 81, urine sodium 28, urine osmolality 194, serum osmolality 249, elevated TSH 7.381, normal free T4, and normal random cortisol. ED physician spoke with news videographer Dr. Red, who recommended starting sodium tablets. Repeat BMP 4 hours later showed sodium level 118. Patient was admitted and treated for hyponatremia. Etiology unknown, most likely polydipsia, psych meds considered less likely. Sodium gradually improved and orientation with it. After treatment with sodium chloride, fluid restriction and normal diet his medical condition was considered stable for discharge with continued outpatient salt tabs and follow up labs. Discharge discussed with: patient, social work - Time Spent with Patient Total time spent providing and/or coordinating discharge services: - Discharge Medications Prescriptions: RX: Collagenase Oint [Santyl] 1 appl TP DAILY 14 Days #1 tube RX: Sodium Chloride [Sodium Chloride Tab] 1 gm PO BID 14 Days #28 tablet Home Medications: RX: Acetaminophen [Tylenol] 650 mg PO Q8HR PRN 07/16/18 [History] RX: Aspirin [Lo-Dose Aspirin EC] 81 mg PO DAILY 07/16/18 [History] RX: Benztropine Mesylate 2 mg PO BID 07/16/18 [History] RX: DiphenhydraMINE [Benadryl] 50 mg PO HS PRN 07/16/18 [History] RX: Divalproex (24 HR) [Depakote ER (24 HR)] 1,000 mg PO HS 07/16/18 [History] RX: Divalproex (24 HR) [Depakote ER (24 HR)] 500 mg PO QAM 07/16/18 [History] RX: Glimepiride [Amaryl] 2 mg PO 0800 07/16/18 [History] RX: Insulin Glargine,Hum.rec.anlog [Lantus Solostar] 60 unit SQ QAM 07/16/18 [History] RX: Levothyroxine [Synthroid] 100 mcg PO 0630 07/16/18 [History] RX: Perphenazine 4 mg PO QPM 07/16/18 [History] RX: Perphenazine [Trilafon] 8 mg PO BID 07/16/18 [History] RX: Simvastatin [Zocor] 20 mg PO HS 07/16/18 [History] RX: risperiDONE [Risperdal] 3 mg PO BID 07/16/18 [History] RX: Insulin LISPRO [Humalog Kwikpen U-100] 20 unit SQ 1200,1700 07/18/18 [History] RX: RisperiDONE MICROSPHERES [Risperdal Consta] 50 mg IM Q2W 07/18/18 [History] RX: Sodium Chloride [Sodium Chloride Tab] 1 gm PO BID 14 Days #28 tablet 07/18/18 [Rx] RX: Collagenase Oint [Santyl] 1 appl TP DAILY 14 Days #1 tube 07/21/18 [Rx] Allergies/Adverse Reactions: Allergy/AdvReac Type Severity Reaction Status Date / Time No Known Allergies Allergy Verified 07/15/18 22:54 Date of admission: 07/16/18 04:18 Primary care physician: PCP NONE Consults: 07/16/18 04:52 Consult to Nephrology [CONS] Routine Consulting Provider: Kidney Deborah/SUZETTE/TIMOTHY/EZEKIEL Reason for Consult: Hyponatremia Call Completed: Yes 07/18/18 14:21 PT [Consult to Physical Therapy] [CONS] Routine Comment: Evaluate, develop and implement POC Reason for Consult: Weakness, discharge planning. Does patient have active BEDREST order?: No Is patient medically & hemodynamically stable?: Yes Patient assessed for mobility or mobilized this visit?: Yes 07/18/18 14:22 OT [Consult to Occupational Therapy] [CONS] Routine Comment: Evaluate, develop and implement POC Reason for Consult: Weakness Does patient have active BEDREST order?: No Is patient medically & hemodynamically stable?: Yes Patient assessed for mobility or mobilized this visit?: Yes Discharging clinician: Zion Watson Anticipated date of discharge: 07/21/18 - Constitutional Vitals: Temp Pulse Resp BP Pulse Ox 97.9 F 75 16 146/61 97 01/11/19 07:20 07/21/18 07:20 07/21/18 07:20 07/21/18 07:20 07/21/18 05:01 General appearance: Present: A&O X 3, pleasant, no acute distress, answers questions appropriately Exam: General: Alert and oriented. Comfortable at this time. Skin: Normal color, no rash, no lesions. H: Normocephalic. EENT: EOMI, pupils equal. Mucus membranes moist. Cardiovascular: Normal S1 & S2, no murmurs or gallops. Not tachycardic Lungs: Breath sounds diminished, positive rhonchi, no wheeze/rales Abdomen: Soft, non-tender, no rigidity. Normal bowel sounds. Extremities: No deformity, no edema or tenderness, no joint swelling or clubbing. 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 transplanted heart: [place] heart Associated angina: without angina Qualified Code(s): I25.10 - Atherosclerotic heart disease of [place] coronary artery without angina pectoris (4) DM type 2 (diabetes mellitus, type 2) Status: Chronic Qualifiers: Diabetes mellitus half-way insulin use: with terminal manager use Diabetes mellitus complication status: without complication Qualified Code(s): E11.9 - Type 2 diabetes mellitus without complications; Z79.4 - terminal manager (current) use of insulin (5) Psychiatric disorder Status: Chronic (6) DVT prophylaxis Status: Acute Hospital course: Mr. Blackwell is a 63 year old male - Time Spent with Patient Total time spent providing and/or coordinating discharge services: Date of admission: 07/16/18 04:18 Primary care physician: PCP NONE Consults: 07/16/18 04:52 Consult to Nephrology [CONS] Routine Consulting Provider: Kidney Deborah/SUZETTE/TIMOTHY/EZEKIEL Reason for Consult: Hyponatremia Call Completed: Yes 07/18/18 14:21 PT [Consult to Physical Therapy] [CONS] Routine Comment: Evaluate, develop and implement POC Reason for Consult: Weakness, discharge planning. Does patient have active BEDREST order?: No Is patient medically & hemodynamically stable?: Yes Patient assessed for mobility or mobilized this visit?: Yes 07/18/18 14:22 OT [Consult to Occupational Therapy] [CONS] Routine Comment: Evaluate, develop and implement POC Reason for Consult: Weakness Does patient have active BEDREST order?: No Is patient medically & hemodynamically stable?: Yes Patient assessed for mobility or mobilized this visit?: Yes - Constitutional Vitals: Temp Pulse Resp BP Pulse Ox 97.9 F 85 15 136/59 93 07/21/18 15:10 07/21/18 15:10 07/21/18 15:10 07/21/18 15:10 07/21/18 15:10 - Attending Attestation I examined this patient and my medical decision-making was reviewed with the Resident Physician. I agree with the documented findings, disposition and treatment plan as described except to the extent set forth below. He is safely discharged, as we have arranged and excepting location, given the note, paperwork and visit, this was a greater than 30 minute discharge.
[2018-07-21 15:12] VITALS: BP 136/59
== END 2018-07-21 17:29 | disposition other institution (70) | DRG 641 ==
LOC: ICNU 22:46 → EMEROOARM 22:46 → ICNU 07-16 03:30 → SUATTDRO 07-16 04:18 → 2NENU 07-18 17:10
PROVIDERS: ADMIT Internal Medicine; ATTEND Internal Medicine

== ENCOUNTER 2019-11-26 17:17 | Inpatient (IN) ==
[2019-11-26] MEDS ORDERED: WATER IVC ONE ×2 (17:38→19:00)
[2019-11-26] MEDS ORDERED: D5 IVC ONE ×2 (17:38→19:00)
[2019-11-26] MEDS ORDERED: ACETYLCYSTEINE IVC ONE ×2 (17:38→19:00)
[2019-11-26 17:39] LABS: ABG Base Excess -1 mEq/L (-2 to 3); ABG HCO3 22 mEq/L (21-27); ABG Oxygen Saturation 97 % (95-98); ABG PCO2 30 mmHg (35-45); ABG PH 7.47 pH Units (7.32-7.45); ABG PO2 86 mmHg (85-104); ABG TCO2 23 mEq/L (20-26)
[2019-11-26 17:53] LABS: Basophils % 0.3 %; Eosinophils # 0.1 K/mcL (0.0-0.6); Eosinophils % 0.9 %; Hematocrit 35.7 % (37.5-50.1); Hemoglobin 11.6 g/dL (12.9-16.9); Immature Granulocytes % 0.5 % (0-4); Lymphocytes # 2.1 K/mcL (0.6-4.6); Lymphocytes % 18.9 %; Mean Corpuscular HGB Conc 32.5 g/dL (31.6-35.5); Mean Corpuscular Hemoglobin 29.2 pg (28.0-33.3); Mean Corpuscular Volume 89.9 fL (83.0-100.0); Mean Platelet Volume 7.8 fL (9.4-12.4); Monocytes # 1.1 K/mcL (0.0-1.3); Monocytes % 9.5 %; Neutrophils # 7.7 K/mcL (1.6-8.9); Platelet Count 233 K/mcL (140-400); Red Blood Count 3.97 M/mcL (4.19-5.50); Red Cell Distribution Width 14.6 % (11.5-14.5); Segmented Neutrophils % 69.9 %
[2019-11-26 17:56] LABS: Prothrombin Time 11.7 Seconds (9.4-12.1)
[2019-11-26 18:15] LABS: Acetaminophen > 200 mcg/mL (10-20); BUN/Creatinine Ratio 14 (6-26); Blood Urea Nitrogen 13 mg/dL (8-23); Calcium 9.1 mg/dL (8.6-10.3); Carbon Dioxide 25 mEq/L (23-29); Chloride 96 mEq/L (98-107); Ethanol < 10 mg/dL (Less than 10); Glucose 316 mg/dL (70-105); Lipase 25 Units/L (11-82); Magnesium 1.5 mg/dL (1.6-2.6); Osmolality,Calculated 276 (280-300); Potassium 4.7 mEq/L (3.5-5.1); Salicylate < 2.5 mg/dL (15.0-30.0); Sodium 127 mEq/L (136-145); eGFR For African Americans > 60 (> 60); eGFR For Non-African Americans > 60 (> 60)
[2019-11-26] MEDS ORDERED: Magnesium Sulfate 1 GM/102 ML PIGGYBACK IVPB ONE (18:27)
[2019-11-26] MEDS ORDERED: 0.9 % Sodium Chloride 1,000 ML IVC ONE (18:28)
[2019-11-26 19:04] LABS: Alanine Aminotransferase 6 Units/L (7-52); Albumin 3.8 g/dL (3.5-5.7); Albumin/Globulin Ratio 1.2 (1.1-2.2); Alkaline Phosphatase 59 Units/L (34-104); Aspartate Amino Transferase 13 Units/L (13-39); Bilirubin,Direct 0.1 mg/dL (0.0-0.2); Bilirubin,Indirect 0.3 mg/dL (0.0-1.0); Bilirubin,Total 0.4 mg/dL (0.3-1.0); Globulin 3.2 g/dL (2.4-3.5)
[2019-11-26] MEDS ORDERED: Naloxone 0.4 MG/ML INJ IVP PRN (20:14)
[2019-11-26] MEDS: Nicotine 21 MG PATCH.TD24 TD SCH (21:57)
[2019-11-26] MEDS ORDERED: Dextrose Gel 15 GM/37.5 ML TUBE PO PRN ×2 (23:12)
[2019-11-26] MEDS ORDERED: *HR* Dextrose 50 % in Water (Syg) 50 ML SYRINGE IVP PRN (23:12)
[2019-11-26] MEDS ORDERED: D5% in Water 1,000 ML IVC PRN (23:12)
[2019-11-26] MEDS: Insulin LISPRO 300 UNITS/3 ML VIAL SQ SCH (23:52)
[2019-11-27] MEDS ORDERED: D5 IVC ONE ×3 (01:00→11:45)
[2019-11-27] MEDS ORDERED: WATER IVC ONE ×3 (01:00→11:45)
[2019-11-27] MEDS ORDERED: ACETYLCYSTEINE IVC ONE ×3 (01:00→11:45)
[2019-11-27] MEDS: Insulin LISPRO 300 UNITS/3 ML VIAL SQ SCH ×3 (05:32→16:34)
[2019-11-27 05:47] LABS: Basophils % 0.3 %; Eosinophils % 0.3 %; Hematocrit 38.3 % (37.5-50.1); Hemoglobin 12.4 g/dL (12.9-16.9); Immature Granulocytes % 0.5 % (0-4); Lymphocytes # 2.3 K/mcL (0.6-4.6); Lymphocytes % 24.3 %; Mean Corpuscular HGB Conc 32.4 g/dL (31.6-35.5); Mean Corpuscular Hemoglobin 28.8 pg (28.0-33.3); Mean Corpuscular Volume 88.9 fL (83.0-100.0); Mean Platelet Volume 7.7 fL (9.4-12.4); Monocytes # 0.7 K/mcL (0.0-1.3); Monocytes % 7.8 %; Neutrophils # 6.4 K/mcL (1.6-8.9); Platelet Count 236 K/mcL (140-400); Red Blood Count 4.31 M/mcL (4.19-5.50); Red Cell Distribution Width 14.4 % (11.5-14.5); Segmented Neutrophils % 66.8 %; White Blood Count 9.5 K/mcL (4.3-11.1)
[2019-11-27 05:54] LABS: INR 1.2; Prothrombin Time 13.5 Seconds (9.4-12.1)
[2019-11-27] MEDS ORDERED: *HR* Heparin 5,000 UNIT/ML VIAL SQ SCH (06:00)
[2019-11-27 06:07] LABS: Acetaminophen 32 mcg/mL (10-20); Alanine Aminotransferase 9 Units/L (7-52); Albumin 3.9 g/dL (3.5-5.7); Albumin/Globulin Ratio 1.2 (1.1-2.2); Alkaline Phosphatase 60 Units/L (34-104); Aspartate Amino Transferase 20 Units/L (13-39); BUN/Creatinine Ratio 13 (6-26); Bilirubin,Total 0.4 mg/dL (0.3-1.0); Blood Urea Nitrogen 10 mg/dL (8-23); Calcium 8.4 mg/dL (8.6-10.3); Carbon Dioxide 21 mEq/L (23-29); Chloride 95 mEq/L (98-107); Globulin 3.2 g/dL (2.4-3.5); Glucose 170 mg/dL (70-105); Osmolality,Calculated 263 (280-300); Potassium 3.7 mEq/L (3.5-5.1); Sodium 125 mEq/L (136-145); Total Protein 7.1 g/dL (6.4-8.9); eGFR For African Americans > 60 (> 60); eGFR For Non-African Americans > 60 (> 60)
[2019-11-27 06:09] LABS: Albumin 3.9 g/dL (3.5-5.7); Albumin/Globulin Ratio 1.2 (1.1-2.2); Bilirubin,Direct 0.2 mg/dL (0.0-0.2); Bilirubin,Indirect 0.2 mg/dL (0.0-1.0); Bilirubin,Total 0.4 mg/dL (0.3-1.0); Globulin 3.2 g/dL (2.4-3.5); Total Protein 7.1 g/dL (6.4-8.9)
[2019-11-27] MEDS ORDERED: Aspirin Enteric Coated 81 MG Tablet PO SCH (09:00)
[2019-11-27] MEDS ORDERED: RisperiDAL 3 MG TABLET PO SCH (09:00)
[2019-11-27] MEDS ORDERED: Divalproex (12 HR) 250 MG TABLET PO SCH (09:00)
[2019-11-27] MEDS: Nicotine 21 MG PATCH.TD24 TD SCH (09:12)
[2019-11-27] MEDS ORDERED: ACETYLCYSTEINE IVC PRN ×2 (12:00→12:12)
[2019-11-27] MEDS ORDERED: D5 IVC PRN ×2 (12:00→12:12)
[2019-11-27] MEDS ORDERED: WATER IVC PRN ×2 (12:00→12:12)
[2019-11-27] MEDS ORDERED: Insulin LISPRO 300 UNITS/3 ML VIAL SQ SCH ×3 (12:00→21:00)
[2019-11-27] MEDS ORDERED: D5% in Water 1,000 ML IVC PRN (12:12)
[2019-11-27] MEDS ORDERED: Dextrose Gel 15 GM/37.5 ML TUBE PO PRN ×2 (12:12)
[2019-11-27] MEDS ORDERED: Naloxone 0.4 MG/ML INJ IVP PRN (12:12)
[2019-11-27] MEDS ORDERED: *HR* Dextrose 50 % in Water (Syg) 50 ML SYRINGE IVP PRN (12:12)
[2019-11-27 15:35] LABS: Acetaminophen < 10 mcg/mL (10-20); Alanine Aminotransferase 8 Units/L (7-52); Albumin 3.4 g/dL (3.5-5.7); Alkaline Phosphatase 51 Units/L (34-104); Aspartate Amino Transferase 13 Units/L (13-39); Bilirubin,Indirect 0.4 mg/dL (0.0-1.0); Bilirubin,Total 0.4 mg/dL (0.3-1.0); Globulin 3.3 g/dL (2.4-3.5); Total Protein 6.7 g/dL (6.4-8.9)
[2019-11-27] MEDS: Divalproex (12 HR) 250 MG TABLET PO SCH ×2 (15:47→21:20)
[2019-11-27] MEDS: *HR* Heparin 5,000 UNIT/ML VIAL SQ SCH (17:31)
[2019-11-27] MEDS: RisperiDAL 3 MG TABLET PO SCH (21:20)
[2019-11-27] MEDS: Insulin DETEMIR 100 UNIT/ML X5UNITS SQ SCH (21:23)
[2019-11-28] MEDS: *HR* Heparin 5,000 UNIT/ML VIAL SQ SCH (05:31)
[2019-11-28 07:07] VITALS: BP 151/81
[2019-11-28] MEDS: Insulin LISPRO 300 UNITS/3 ML VIAL SQ SCH ×2 (07:41→11:38)
[2019-11-28] MEDS: Insulin DETEMIR 100 UNIT/ML X5UNITS SQ SCH (07:41)
[2019-11-28] MEDS: RisperiDAL 3 MG TABLET PO SCH (07:43)
[2019-11-28] MEDS: Divalproex (12 HR) 250 MG TABLET PO SCH ×2 (07:43→13:26)
[2019-11-28 07:58] LABS: Basophils % 0.4 %; Eosinophils # 0.2 K/mcL (0.0-0.6); Eosinophils % 1.8 %; Hematocrit 37.7 % (37.5-50.1); Hemoglobin 12.1 g/dL (12.9-16.9); Immature Granulocytes % 0.6 % (0-4); Lymphocytes # 1.7 K/mcL (0.6-4.6); Lymphocytes % 21.1 %; Mean Corpuscular HGB Conc 32.1 g/dL (31.6-35.5); Mean Corpuscular Hemoglobin 29.1 pg (28.0-33.3); Mean Corpuscular Volume 90.6 fL (83.0-100.0); Mean Platelet Volume 8.2 fL (9.4-12.4); Monocytes # 0.6 K/mcL (0.0-1.3); Monocytes % 7.2 %; Neutrophils # 5.6 K/mcL (1.6-8.9); Platelet Count 256 K/mcL (140-400); Red Blood Count 4.16 M/mcL (4.19-5.50); Red Cell Distribution Width 14.6 % (11.5-14.5); Segmented Neutrophils % 68.9 %; White Blood Count 8.2 K/mcL (4.3-11.1)
[2019-11-28 08:07] LABS: Acetaminophen < 10 mcg/mL (10-20); Alanine Aminotransferase 7 Units/L (7-52); Albumin 3.7 g/dL (3.5-5.7); Albumin/Globulin Ratio 1.2 (1.1-2.2); Alkaline Phosphatase 58 Units/L (34-104); Aspartate Amino Transferase 12 Units/L (13-39); BUN/Creatinine Ratio 16 (6-26); Bilirubin,Direct 0.1 mg/dL (0.0-0.2); Bilirubin,Indirect 0.1 mg/dL (0.0-1.0); Bilirubin,Total 0.2 mg/dL (0.3-1.0); Blood Urea Nitrogen 13 mg/dL (8-23); Calcium 8.7 mg/dL (8.6-10.3); Carbon Dioxide 23 mEq/L (23-29); Chloride 97 mEq/L (98-107); Globulin 3.2 g/dL (2.4-3.5); Glucose 193 mg/dL (70-105); Magnesium 1.7 mg/dL (1.6-2.6); Osmolality,Calculated 271 (280-300); Phosphorous 2.1 mg/dL (2.7-4.5); Potassium 3.9 mEq/L (3.5-5.1); Sodium 128 mEq/L (136-145); Total Protein 6.9 g/dL (6.4-8.9); eGFR For African Americans > 60 (> 60); eGFR For Non-African Americans > 60 (> 60)
[2019-11-28] MEDS ORDERED: Aspirin Enteric Coated 81 MG Tablet PO SCH (09:00)
[2019-11-28] MEDS ORDERED: Nicotine 21 MG PATCH.TD24 TD SCH (09:00)
[2019-11-28] MEDS: Nicotine 2 MG GUM BC PRN ×2 (10:10→12:27)
== END 2019-11-28 14:56 | DRG 918 ==
LOC: ICNU 17:17 → EMEROOARM 17:17 → ICNU 21:00 → SUATTDRO 23:16 → 3ANU 11-27 14:53
PROVIDERS: ADMIT Internal Medicine; ATTEND Family Medicine